=== PATIENT | female | born 1940 | race Caucasian/White ===

== ENCOUNTER → 2016-02-12 | Outpatient (CLI) | payer OTHER ==
[~2016-02-12] MED LIST: AMB10 PO; CGN5 PO; CLC100 PO; PRLSR20 PO; SIMV20TA2 PO
[2016-02-12 12:10] LABS: BASO % 0.2 %; BASO ABS # 0.01 K/uL (0-0.2); COMPLETE YES; EOS % 0.7 %; HEMATOCRIT 38.3 % (37-47); IG% 0.2 %; LYMPH ABS # 2.11 K/uL (1.2-3.4); MEAN CELL VOLUME 90.8 fL (80-100); MEAN CORPUSCULAR HGB CONC 34.2 g/dl (32-36); MEAN PLATELET VOLUME 9.1 fL (7.4-10.4); MONO % 7.8 %; NEUT % 56.1 %; PLATELET COUNT 348 K/uL (130-400); RED BLOOD COUNT 4.22 M/uL (4.2-5.4); WHITE BLOOD COUNT 6.02 K/uL (4.8-10.8)
[2016-02-12 12:15] LABS: URINE APPEARANCE CLEAR (CLEAR); URINE BILIRUBIN NEG (NEG); URINE COLOR YELLOW; URINE EPITHELIAL CELL AUTO 0-5 /lpf (0-5); URINE NITRITE NEG (NEG); URINE PH 6.5 (4.5-7.5); URINE SPECIFIC GRAVITY 1.012 (1.000-1.030); UROBILINOGEN NEG (NEG)
[2016-02-12 12:16] LABS: MANUAL MICROSCOPIC REQUIRED? NO; REVIEW REQ? NO
[2016-02-12 12:33] LABS: ALT/SGPT 22 U/L (12-78); AST/SGOT 20 U/L (15-37); BLOOD UREA NITROGEN 10 mg/dl (7-18); CALCIUM 8.9 mg/dl (8.5-10.1); CARBON DIOXIDE 25 mmol/L (21-32); CHLORIDE 108 mmol/L (98-107); CREATININE 0.58 mg/dl (0.60-1.20); GLUCOSE 108 mg/dl (70-99); POTASSIUM 3.9 mmol/L (3.5-5.1); SODIUM 143 mmol/L (136-145)
[2016-02-12 12:36] LABS: ALB/GLOB RATIO 1.1 (0.9-2); ALKALINE PHOSPHATASE 74 U/L (45-117); CHOLESTEROL 159 mg/dl (0-200); CHOLESTEROL/HDL RATIO 2.1; HDL CHOLESTEROL 76 mg/dl; LDL CHOLESTEROL CALCULATED 69 mg/dl; TRIGLYCERIDES 71 mg/dl (0-150); VERY LOW DENSITY LIPOPROT CALC 14 mg/dl
[2016-02-12 13:01] LABS: ESTIMATED AVERAGE GLUCOSE 94 mg/dl; HA1C FLAG Normal (Normal)
--- NOTE | 2016-02-19 09:02 | CODING QUERY MEDICAL NECESSITY ---
SUPPORTING DIAGNOSIS NEEDED A supporting diagnosis is required for the test/procedure performed on this patient in order for us to be reimbursed by the patient's insurance. Please provide a supporting diagnosis for the following test/procedure listed below next to the test name along with your signature. *If there is no additional diagnosis for this patient that would support the following test/procedure please document that below next to the test/procedure. Test(s)/Procedure(s) that require a supporting diagnosis: DOS 02/11 * Vitamin B12 DIAGNOSIS: Provider Signature: Date: Thank you [facility] Once completed, please kindly fax back to [phone] For questions please call [phone]
== END | disposition home or self-care (01) ==
LOC: C.LAB1850 11:09
PROVIDERS: ATTEND Internal Medicine
DX: G62.9 Polyneuropathy, unspecified (principal); R73.9 Hyperglycemia, unspecified; R35.0 Frequency of micturition; E55.9 Vitamin D deficiency, unspecified; E78.5 Hyperlipidemia, unspecified

== ENCOUNTER → 2016-08-24 | Outpatient (CLI) | payer OTHER ==
[2016-08-24 12:16] LABS: MEAN CORPUSCULAR HEMOGLOBIN 30.9 pg (25-34); MEAN CORPUSCULAR HGB CONC 33.6 g/dl (32-36); MEAN PLATELET VOLUME 9.8 fL (7.4-10.4); PLATELET COUNT 328 K/uL (130-400); RED BLOOD COUNT 4.24 M/uL (4.2-5.4); WHITE BLOOD COUNT 7.09 K/uL (4.8-10.8)
[2016-08-24 12:33] LABS: ALT/SGPT 20 U/L (12-78); AST/SGOT 18 U/L (15-37); BLOOD UREA NITROGEN 11 mg/dl (7-18); BUN/CREATININE RATIO 17.9 (10-20); CALCIUM 8.8 mg/dl (8.5-10.1); CARBON DIOXIDE 27 mmol/L (21-32); CHLORIDE 107 mmol/L (98-107); CREATININE 0.59 mg/dl (0.60-1.20); GLUCOSE 95 mg/dl (70-99); POTASSIUM 3.9 mmol/L (3.5-5.1); SODIUM 141 mmol/L (136-145)
[2016-08-24 12:44] LABS: CHOLESTEROL 152 mg/dl (0-200); CHOLESTEROL/HDL RATIO 2.1; HDL CHOLESTEROL 72 mg/dl; LDL CHOLESTEROL CALCULATED 65 mg/dl; TRIGLYCERIDES 74 mg/dl (0-150); VERY LOW DENSITY LIPOPROT CALC 15 mg/dl
== END | disposition home or self-care (01) ==
LOC: C.LAB1850 11:18
PROVIDERS: ATTEND Internal Medicine
DX: E78.5 Hyperlipidemia, unspecified (principal); G62.9 Polyneuropathy, unspecified

== ENCOUNTER → 2017-05-12 | Outpatient (CLI) | payer OTHER ==
[2017-05-12 12:34] LABS: HEMATOCRIT 36.7 % (37-47); HEMOGLOBIN 12.4 g/dL (12.0-16.0); MEAN CELL VOLUME 90.8 fL (80-100); MEAN CORPUSCULAR HEMOGLOBIN 30.7 pg (25-34); MEAN CORPUSCULAR HGB CONC 33.8 g/dl (32-36); MEAN PLATELET VOLUME 9.6 fL (7.4-10.4); PLATELET COUNT 444 K/uL (130-400); RED CELL DISTRIBUTION WIDTH CV 13.3 % (11.5-14.5); RED CELL DISTRIBUTION WIDTH SD 44.6 fL (36.4-46.3); WHITE BLOOD COUNT 6.88 K/uL (4.8-10.8)
[2017-05-12 12:50] LABS: ALBUMIN 3.7 gm/dl (3.4-5.0); ALT/SGPT 20 U/L (12-78); BLOOD UREA NITROGEN 10 mg/dl (7-18); CALCIUM 9.3 mg/dl (8.5-10.1); CARBON DIOXIDE 27 mmol/L (21-32); CHOLESTEROL 153 mg/dl (0-200); GLUCOSE 95 mg/dl (70-99); POTASSIUM 3.7 mmol/L (3.5-5.1); SODIUM 134 mmol/L (136-145)
[2017-05-12 12:53] LABS: ALKALINE PHOSPHATASE 65 U/L (45-117); AST/SGOT 18 U/L (15-37); LDL CHOLESTEROL CALCULATED 87 mg/dl; TOTAL PROTEIN 7.8 gm/dl (6.4-8.2)
== END | disposition home or self-care (01) ==
LOC: C.LAB1850 10:41
PROVIDERS: ATTEND Internal Medicine
DX: G62.9 Polyneuropathy, unspecified (principal)

== ENCOUNTER 2017-08-30 11:45 | Inpatient (IN) | payer OTHER ==
[~2017-08-30] VITALS: Ht 162.6 cm; Wt 56.0 kg
[2017-08-30] MEDS ORDERED: ONDANSETRON INJ 2 MG/ML 2 ML VIAL IV STA (12:21)
[2017-08-30] MEDS ORDERED: SODIUM CHLORIDE 0.9% 1000ML 1,000 ML IV STA (12:21)
--- NOTE | 2017-08-30 12:23 | EMERGENCY ROOM VISIT NOTE ---
History Report prepared by Claudio: Jarvis Rodríguez Under the Supervision of: Dr. Zeferino Perez M.D. First contact with patient: 12:18 Chief Complaint: FALL Stated Complaint: FALL History of Present Illness The patient is a 76 year old female who presents to the Emergency Room with complaints of constant left hip pain following a fall occurring four days ago. The patient states that she fell four days ago and has had left hip pain since. She notes that she fell on the bed and hit her head. She reports that she cannot move her left hip. Per nurse, the patient has been lying on her right and has necrotic tissue on that side. She states that the patient was not able to get up following her fall and has been on the ground for the last four days. She notes that the patient has not eaten or had anything to drink since she fell. The patient denies any neck pain and abdominal pain. She rates her pain as a 10/10. She reports that she would like her son called. Source of History: patient Onset: four days Position: other (left hip) Symptom Intensity: 10/10 Timing: constant Associated Symptoms: No neck pain, No abdominal pain Note: Per nurse, the patient has necrotic tissue on her right side. Review of Systems See HPI for pertinent positives & negatives. A total of 10 systems reviewed and were otherwise negative. Past Medical & Surgical Medical Problems: (1) Nose polyp Family History Cancer Heart disease Hypertension Social History Alcohol Use: none Marital Status: Housing Status: lives alone Occupation Status: retired Current/Historical Medications Scheduled Benztropine Mesylate (Benztropine Mesylate), 1.5 MG PO BID Cetirizine (Zyrtec), 10 MG PO HS Docusate Sodium (Colace), 100 MG PO TID Doxepin Hcl (Sleep) (Silenor), 6 MG PO HS Omeprazole (Prilosec), 20 MG PO DAILY Risperidone (Risperdal Consta), 50 MG IM Q2WKS Simvastatin (Zocor), 20 MG PO HS Temazepam (Restoril), 15 MG PO HS Allergies Coded Allergies: Morphine (Unverified Allergy, Mild, 08/30/17) Erythromycin (Unverified Allergy, Unknown, UNKNOWN, 08/30/17) Physical Exam Vital Signs Date Time Temp Pulse Resp B/P (MAP) Pulse Ox O2 Delivery O2 Flow Rate FiO2 08/30/17 16:13 105 18 154/63 98 Room Air 08/30/17 15:36 96 18 99 08/30/17 15:31 154/63 08/30/17 15:06 84 13 97 08/30/17 15:01 156/55 08/30/17 14:50 88 16 98 08/30/17 14:31 137/53 08/30/17 14:20 79 14 98 08/30/17 14:16 138/56 08/30/17 13:50 72 15 97 08/30/17 13:45 85 12 98 Room Air 08/30/17 13:32 84 18 136/67 98 Room Air 08/30/17 13:31 136/67 08/30/17 13:30 88 08/30/17 13:28 176/64 08/30/17 12:45 88 18 142/77 96 Room Air 08/30/17 11:45 36.9 88 18 150/73 96 Room Air 08/30/17 11:45 36.9 88 18 150/73 96 Room Air Physical Exam GENERAL: Awake, alert, well appearing, no acute distress HEAD: Normocephalic, atraumatic. No garcia sign. No raccoon eyes. EYES: Normal conjunctiva. PERRL. EARS: External ears normal. Right TM normal. Left TM normal. NOSE: Atraumatic OROPHARYNX: Lips, tongue, and mucosa unremarkable. No erythema or exudate. NECK: Supple. No nuchal rigidity. FROM. No tracheal deviation or JVD. No posterior midline tenderness. No step offs noted. RESPIRATORY: CTA bilaterally CARDIAC: Regular rate, normal rhythm. ABDOMEN: Inspection reveals no abnormalities. Soft, non distended. No tenderness to palpation. No hernias. BACK: No midline step offs or tenderness to palpation. Unremarkable. PELVIS: Unable to move left hip, areas of pressure source to right hip and buttock. SKIN: Normal. LYMPH: No adenopathy. MUSCULOSKELETAL: Upper and lower extremities are atraumatic. NEURO: GCS 15. Normal sensorium. No sensory or motor deficits noted. Medical Decision & Procedures ER Provider Diagnostic Interpretation: Radiology results as stated below per my review and radiologist interpretation: PELVIS 1 OR 2 VIEW ROUTINE, L FEMUR 2 VIEWS ROUTINE FINDINGS: The bones are osteopenic. No fracture or dislocation within the pelvis, hips, left femur. 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 Soft tissues are unremarkable. No radiopaque foreign bodies. IMPRESSION: No fracture or dislocation within the pelvis, hips, left femur. Electronically signed by: Marcial Donahue M.D. 08/30/2017 1:40 PM Dictated Date/Time: 08/30/2017 1:37 PM CHEST ONE VIEW PORTABLE FINDINGS: The cardiac and mediastinal contours are normal. There is no evidence of focal pulmonary consolidation. There is no evidence of failure. No pleural effusions are visualized. No pneumothorax is visualized. IMPRESSION: No active disease in the chest. Electronically signed by: Kuldip Shook M.D. 08/30/2017 1:33 PM Dictated Date/Time: 08/30/2017 1:[address] FINDINGS: No fractures. No subluxation. Prevertebral soft tissues and the C1-C2 interval are intact. No pneumothorax. Severe disc space narrowing from C3 through C7. Moderate facet degenerative changes throughout the cervical spine. Bilateral thyroid nodules with the largest on the left measuring 12 mm. There is a 6 mm nodule within the left lung apex. Additional nodular densities within the lung apices favor scarring. IMPRESSION: 1. No fractures within the cervical spine. 2. A 6 mm indeterminate nodule within the left lung apex. Please refer to the chart below for recommended follow-up. Please refer to below summary of Fleischner criteria recommendations for follow-up of incidental CT nodules (Billy Patel, Guidelines for management of small pulmonary nodules detected on CT scans: A statement from the Fleischner Society, Radiology 237: [phone].) SOLID NODULES Solitary nodule size: <6 mm * Low risk patients: no follow-up needed * high risk patients: optional CT at 12 months Solitary nodule size: 6-8 mm * Low risk patients: follow-up at 6-12 months, then consider further follow-up at 18-24 months * high risk patients: initial follow-up CT at 6-12 months and then at 18-24 months if no change Solitary nodule size: >8 mm * either low or high risk patients - consider follow-up CT at 3 months, and/or CT-PET, and/or biopsy Multiple nodules size: <6 mm * Low risk patients: no routine follow-up * high risk patients: optional CT at 12 months Multiple nodules size: 6-8 mm * Low risk patients: follow-up at 3-6 months, then consider further follow-up at 18-24 months * high risk patients: follow-up at 3-6 months, then at 18-24 months if no change Multiple nodules size: >8 mm * Low risk patients: follow-up at 3-6 months, then consider further follow-up at 18-24 months * high risk patients: follow-up at 3-6 months, then at 18-24 months if no change Note: newly detected indeterminate nodule in persons 35 years of age or older. * Low risk patients: minimal or absent history of smoking and/or other known risk factors * high risk patients: history of smoking or of other known risk factors (e.g. first degree relative with lung cancer, or exposure to asbestos, radon, uranium) * if a nodule up to 8 mm is partly solid or is ground glass further follow-up is required after 24 months to exclude possible slow growing adenocarcinoma (CAR) SUBSOLID NODULES Solitary pure ground-glass nodule * nodule size <6 mm - no CT follow-up required * nodule size >=6 mm - follow-up CT at 6-12 months, then every 2 years until 5 years Solitary part-solid nodule * nodule size <6 mm - no CT follow-up required * nodule size >=6 mm - follow-up CT at 3-6 months. If unchanged, and solid component remains <6 mm, then annual follow-up for 5 years Multiple subsolid nodules * nodule size <6 mm - follow-up CT at 3-6 months, consider further follow-up at 2 and 4 years if stable * nodule size >=6 mm - follow-up CT at 3-6 months, subsequent management based on the most suspicious nodule(s) Electronically signed by: Marcial Donahue M.D. 08/30/2017 2:24 PM Dictated Date/Time: 08/30/2017 2:[address] OF THE PELVIS AND HIPS WITHOUT CONTRAST FINDINGS: The sacroiliac joints and symphysis pubis are intact. No acute fracture is identified within the pelvis or hips. There is joint space narrowing and osteophytosis of both hips consistent with osteoarthritis. A Singh balloon is present within the bladder with a small amount of gas. Right buttock infiltration/fluid is noted. Sigmoid diverticulosis is noted without evidence for acute diverticulitis within visualized portions of the colon. Water attenuation abnormality within the right lower abdomen is partially imaged on this exam. This is likely benign but incompletely imaged. A moderate amount of stool is noted within visualized portions of the colon and rectum. IMPRESSION: 1. No acute fracture within the pelvis or hips. 2. Right buttock subcutaneous infiltration and fluid which may reflect edema or a small contusion. Electronically signed by: Neal Benson M.D. 08/30/2017 2:28 PM Dictated Date/Time: 08/30/2017 2:[address] OF THE HEAD WITHOUT CONTRAST FINDINGS: No acute intracranial hemorrhage, midline shift or mass effect is present. Ventricular system is unremarkable for age. Basilar cisterns are patent. There are no extra-axial collections. Mild white matter hypodensity suggests small vessel disease. Trace left mastoid fluid is noted. There is no calvarial fracture. IMPRESSION: No acute intracranial findings. Electronically signed by: Neal Benson M.D. 08/30/2017 2:21 PM Dictated Date/Time: 08/30/2017 2:13 PM Laboratory Results Test 08/30/17 11:50 08/30/17 12:05 08/30/17 12:21 08/30/17 12:43 Urine Color YELLOW Urine Appearance CLEAR (CLEAR) Urine pH 5.5 (4.5-7.5) Urine Specific [place] 1.027 (1.000-1.030) Urine Protein 1+ (NEG) Urine Glucose (UA) NEG (NEG) Urine Ketones 4+ (NEG) Urine Occult Blood TRACE (NEG) Urine Nitrite NEG (NEG) Urine Bilirubin NEG (NEG) Urine Urobilinogen NEG (NEG) Urine Leukocyte Esterase NEG (NEG) Urine WBC (Auto) 5-10 /hpf (0-5) Urine RBC (Auto) 5-10 /hpf (0-4) Urine Hyaline Casts (Auto) 10-30 /lpf (0-5) Urine Epithelial Cells (Auto) >30 /lpf (0-5) Urine Bacteria (Auto) NEG (NEG) Prothrombin Time 10.4 SECONDS (9.0-12.0) Prothromb Time International Ratio 1.0 (0.9-1.1) Activated Partial Thromboplast Time 26.5 SECONDS (21.0-31.0) Partial Thromboplastin Ratio 1.0 Creatine Kinase MB 10.2 ng/ml (0.5-3.6) Troponin I < 0.015 ng/ml (0-0.045) Creatine Kinase MB Ratio (0-3.0) Bedside Hemoglobin 14.3 g/dl (12.0-16.0) Bedside Hematocrit 42 % (37-47) Bedside Sodium 142 mEq/L (135-144) Bedside Potassium 4.0 mEq/L (3.3-5.0) Bedside Chloride 107 mEq/L (101-112) Bedside Total CO2 20 mEq/l (24-31) Bedside Blood Urea Nitrogen 26 mg/dl (7-18) Bedside Creatinine 0.6 mg/dl (0.6-1.3) Bedside Glucose (other) 95 mg/dl (70-99) Bedside Ionized Calcium (Jaja) 1.24 mmol/l (1.12-1.32) Labs reviewed by ED physician. Medications Administered Medications (Trade) Dose Ordered Sig/Moises Route Start Time Stop Time Status Last Admin Dose Admin Sodium Chloride 1,000 ml @ 999 mls/hr Q1H1M STAT IV 08/30/17 12:21 08/30/17 13:21 DC 08/30/17 12:33 999 MLS/HR Hydromorphone HCl (Dilaudid Inj) 0.5 mg Q20M PRN IV 08/30/17 12:30 08/30/17 16:35 DC 08/30/17 13:29 0.5 MG Ondansetron HCl (Zofran Inj) 4 mg NOW STAT IV 08/30/17 12:21 08/30/17 12:26 DC 08/30/17 13:28 4 MG Dextrose/Sodium Chloride 1,000 ml @ 150 mls/hr Q6H40M IV 08/30/17 16:00 09/29/17 15:59 08/31/17 06:35 150 MLS/HR ECG Per My Interpretation Indication: weakness Rate (beats per minute): 90 Rhythm: sinus rhythm Findings: PVC, other (No ST elevation/depression) ED Course 1218: Past medical records reviewed. The patient was evaluated in room C1. A complete history and physical examination was performed. 1233: I spoke to the patient's son. 1445: Upon reexamination the patient is stable. I discussed results and treatment plan with the patient. She verbalizes agreement and understanding. I spoke with Dr. Pulido from the [facility] Hospitalist Service. The patient will be evaluated for further management. Medical Decision Differential diagnosis: Etiologies such as fracture, dislocation, intra-abdominal, pneumothorax, intrathoracic , intracranial, neurologic, as well as other traumatic pathologies were entertained. This is a 76-year-old female who presents emergency department after landing on her hip after a fall at home. The patient was sent for x-rays of her left hip however there does not appear to be any acute fracture dislocation. Due to the patient's pain she was sent for CAT scan of the head as well as the pelvis however again there does not appear to be any acute fractures or dislocations. The patient's CK level was found to be grossly elevated. For this reason I did discuss case the hospitalist service who agreed to admit the patient. I did discuss my findings with the patient's son. He did speak with the patient on phone. Medication Reconcilliation Current Medication List: was personally reviewed by me Blood Pressure Screening Patient's blood pressure: Elevated blood pressure Elevated blood pressure will be monitored by hospitalist. Consults Time Called: 1444 Consulting Physician: Dr. Pulido - Hospitalist, [facility] Returned Call: [phone] I discussed the patient's case with Dr. Pulido, she has agreed to evaluate the patient for further management and care. Impression Primary Impression: Fall Additional Impression: Rhabdomyolysis Scribe Attestation The scribe's documentation has been prepared under my direction and personally reviewed by me in its entirety. I confirm that the note above accurately reflects all work, treatment, procedures, and medical decision making performed by me. Departure Information Dispostion Being Evaluated By Hospitalist Referrals Artie Obrien M.D. (PCP) Patient Instructions My [facility] Problem Qualifiers Primary Impression: Fall Encounter type: initial encounter Qualified Codes: W19.XXXA - Unspecified fall, initial encounter Additional Impression: Rhabdomyolysis Rhabdomyolysis type: traumatic Encounter type: initial encounter Qualified Codes: T79.6XXA - Traumatic ischemia of muscle, initial encounter
[2017-08-30] MEDS ORDERED: HYDROmorphone INJ 0.5 MG/0.5 ML SYR IV PRN (12:30)
[2017-08-30 12:34] LABS: BASO % 0.1 %; BASO ABS # 0.01 K/uL (0-0.2); EOS % 0.1 %; EOS ABS # 0.01 K/uL (0-0.5); HEMATOCRIT 41.4 % (37-47); HEMOGLOBIN 14.1 g/dL (12.0-16.0); IG# 0.04 K/uL (0.00-0.02); LYMPH % 10.4 %; LYMPH ABS # 1.49 K/uL (1.2-3.4); MEAN CORPUSCULAR HGB CONC 34.1 g/dl (32-36); MEAN PLATELET VOLUME 9.3 fL (7.4-10.4); MONO % 8.1 %; MONO ABS # 1.16 K/uL (0.11-0.59); NEUT ABS # 11.68 K/uL (1.4-6.5); PLATELET COUNT 459 K/uL (130-400); RED CELL DISTRIBUTION WIDTH CV 14.1 % (11.5-14.5); RED CELL DISTRIBUTION WIDTH SD 46.8 fL (36.4-46.3); WHITE BLOOD COUNT 14.39 K/uL (4.8-10.8)
[2017-08-30 12:43] LABS: PTT PATIENT 26.5 SECONDS (21.0-31.0)
[2017-08-30 13:09] LABS: BLOOD UREA NITROGEN 25 mg/dl (7-18); CALCIUM 9.9 mg/dl (8.5-10.1); CARBON DIOXIDE 20 mmol/L (21-32); CKMB 10.2 ng/ml (0.5-3.6); CREATININE 0.75 mg/dl (0.60-1.20); GLUCOSE 93 mg/dl (70-99); SODIUM 141 mmol/L (136-145)
--- NOTE | 2017-08-30 13:34 | DIAGNOSTIC IMAGING REPORT ---
CHEST ONE VIEW PORTABLE CLINICAL HISTORY: Pain status post trauma COMPARISON STUDY: No previous studies for comparison. FINDINGS: The cardiac and mediastinal contours are normal. There is no evidence of focal pulmonary consolidation. There is no evidence of failure. No pleural effusions are visualized.[ No pneumothorax is visualized. IMPRESSION: No active disease in the chest. Electronically signed by: Kuldip Shook M.D. 08/30/2017 1:33 PM Dictated Date/Time: 08/30/2017 1:33 PM
--- NOTE | 2017-08-30 13:41 | DIAGNOSTIC IMAGING REPORT ---
PELVIS 1 OR 2 VIEW ROUTINE, L FEMUR 2 VIEWS ROUTINE CLINICAL HISTORY: Pt c/o left hip pain COMPARISON STUDY: None. FINDINGS: The bones are osteopenic. No fracture or dislocation within the pelvis, hips, left femur. 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 Soft tissues are unremarkable. No radiopaque foreign bodies. IMPRESSION: No fracture or dislocation within the pelvis, hips, left femur. Electronically signed by: Marcial Donahue M.D. 08/30/2017 1:40 PM Dictated Date/Time: 08/30/2017 1:37 PM
[2017-08-30] MEDS ORDERED: TEMA15CA4 PO (13:59)
[2017-08-30] MEDS ORDERED: PRLSR20 PO (13:59)
[2017-08-30] MEDS ORDERED: DOCU-94 PO (13:59)
[2017-08-30] MEDS ORDERED: CETI10TA84 PO (13:59)
[2017-08-30] MEDS ORDERED: SIMV20TA2 PO (13:59)
[2017-08-30] MEDS ORDERED: [UNRECOGNIZED DRUG - CODE] IM (13:59)
[2017-08-30] MEDS ORDERED: BENZ-88 PO (13:59)
[2017-08-30] MEDS ORDERED: DOXE1TAB2 PO (13:59)
--- NOTE | 2017-08-30 14:22 | DIAGNOSTIC IMAGING REPORT ---
CT OF THE HEAD WITHOUT CONTRAST CLINICAL HISTORY: Fall. Altered mental status. COMPARISON STUDY: MRI of the brain July 17, 2005. TECHNIQUE: Helical axial images of the head were obtained without IV contrast. Automated exposure control was utilized for the study. A dose lowering technique was utilized adhering to the principles of ALARA. FINDINGS: No acute intracranial hemorrhage, midline shift or mass effect is present. Ventricular system is unremarkable for age. Basilar cisterns are patent. There are no extra-axial collections. Mild white matter hypodensity suggests small vessel disease. Trace left mastoid fluid is noted. There is no calvarial fracture. IMPRESSION: No acute intracranial findings. Electronically signed by: Neal Benson M.D. 08/30/2017 2:21 PM Dictated Date/Time: 08/30/2017 2:13 PM
--- NOTE | 2017-08-30 14:26 | DIAGNOSTIC IMAGING REPORT ---
CERVICAL SPINE CT CT DOSE: HISTORY: Pt c/o neck pain s/p fall TECHNIQUE: Multiaxial CT images of the cervical spine were performed and reformatted in the sagittal and coronal plane without the use of contrast. A dose lowering technique was utilized adhering to the principles of ALARA. COMPARISON: None. FINDINGS: No fractures. No subluxation. Prevertebral soft tissues and the C1-C2 interval are intact. No pneumothorax. Severe disc space narrowing from C3 through C7. Moderate facet degenerative changes throughout the cervical spine. Bilateral thyroid nodules with the largest on the left measuring 12 mm. There is a 6 mm nodule within the left lung apex. Additional nodular densities within the lung apices favor scarring. IMPRESSION: 1. No fractures within the cervical spine. 2. A 6 mm indeterminate nodule within the left lung apex. Please refer to the chart below for recommended follow-up. Please refer to below summary of Fleischner criteria recommendations for follow-up of incidental CT nodules (Billy Patel, Guidelines for management of small pulmonary nodules detected on CT scans: A statement from the Fleischner Society, Radiology 237: [phone].) SOLID NODULES Solitary nodule size: <6 mm * Low risk patients: no follow-up needed * high risk patients: optional CT at 12 months Solitary nodule size: 6-8 mm * Low risk patients: follow-up at 6-12 months, then consider further follow-up at 18-24 months * high risk patients: initial follow-up CT at 6-12 months and then at 18-24 months if no change Solitary nodule size: >8 mm * either low or high risk patients - consider follow-up CT at 3 months, and/or CT-PET, and/or biopsy Multiple nodules size: <6 mm * Low risk patients: no routine follow-up * high risk patients: optional CT at 12 months Multiple nodules size: 6-8 mm * Low risk patients: follow-up at 3-6 months, then consider further follow-up at 18-24 months * high risk patients: follow-up at 3-6 months, then at 18-24 months if no change Multiple nodules size: >8 mm * Low risk patients: follow-up at 3-6 months, then consider further follow-up at 18-24 months * high risk patients: follow-up at 3-6 months, then at 18-24 months if no change Note: newly detected indeterminate nodule in persons 35 years of age or older. * Low risk patients: minimal or absent history of smoking and/or other known risk factors * high risk patients: history of smoking or of other known risk factors (e.g. first degree relative with lung cancer, or exposure to asbestos, radon, uranium) * if a nodule up to 8 mm is partly solid or is ground glass further follow-up is required after 24 months to exclude possible slow growing adenocarcinoma (CAR) SUBSOLID NODULES Solitary pure ground-glass nodule * nodule size <6 mm - no CT follow-up required * nodule size >=6 mm - follow-up CT at 6-12 months, then every 2 years until 5 years Solitary part-solid nodule * nodule size <6 mm - no CT follow-up required * nodule size >=6 mm - follow-up CT at 3-6 months. If unchanged, and solid component remains <6 mm, then annual follow-up for 5 years Multiple subsolid nodules * nodule size <6 mm - follow-up CT at 3-6 months, consider further follow-up at 2 and 4 years if stable * nodule size >=6 mm - follow-up CT at 3-6 months, subsequent management based on the most suspicious nodule(s) Electronically signed by: Marcial Donahue M.D. 08/30/2017 2:24 PM Dictated Date/Time: 08/30/2017 2:16 PM
--- NOTE | 2017-08-30 14:29 | DIAGNOSTIC IMAGING REPORT ---
CT OF THE PELVIS AND HIPS WITHOUT CONTRAST CLINICAL HISTORY: Left hip pain following fall. COMPARISON STUDY: Pelvis and left femur radiographs performed earlier today. TECHNIQUE: Axial images of the pelvis and hips were obtained without IV contrast. Coronal and sagittal reformats were viewed. FINDINGS: The sacroiliac joints and symphysis pubis are intact. No acute fracture is identified within the pelvis or hips. There is joint space narrowing and osteophytosis of both hips consistent with osteoarthritis. A Singh balloon is present within the bladder with a small amount of gas. Right buttock infiltration/fluid is noted. Sigmoid diverticulosis is noted without evidence for acute diverticulitis within visualized portions of the colon. Water attenuation abnormality within the right lower abdomen is partially imaged on this exam. This is likely benign but incompletely imaged. A moderate amount of stool is noted within visualized portions of the colon and rectum. IMPRESSION: 1. No acute fracture within the pelvis or hips. 2. Right buttock subcutaneous infiltration and fluid which may reflect edema or a small contusion. Electronically signed by: Neal Benson M.D. 08/30/2017 2:28 PM Dictated Date/Time: 08/30/2017 2:21 PM
[2017-08-30] MEDS ORDERED: MAGNESIUM HYDROXIDE SUSP 30 ML UDC PO PRN (16:00)
[2017-08-30] MEDS ORDERED: ACETAMINOPHEN 325 MG TAB PO PRN (16:00)
[2017-08-30] MEDS ORDERED: ALUMINUM/MAGNESIUM/SIMETH (MAALOX MAX) 30 ML UDC PO PRN (16:00)
[2017-08-30] MEDS ORDERED: ONDANSETRON INJ 2 MG/ML 2 ML VIAL IV PRN (16:00)
[2017-08-30] MEDS ORDERED: POLYETHYLENE (MIRALAX) 17 GM PACK PO PRN (16:00)
[2017-08-30] MEDS ORDERED: TRAMADOL HCL 50 MG TAB PO PRN (16:30)
--- NOTE | 2017-08-30 16:55 | History and Physical ---
History & Physical Date & Time of Service: Aug 30, 2017 at 16:15 Chief Complaint: FALL Primary Care Physician: Artie Obrien M.D. History of Present Illness Source: patient 76y/oF with reported hx of schizophrenia, and tremors presents with L hip pain s /p fall 4 days ago. According to pt, she was trying to get on her bed but felt dizzy and fell hitting head and back on bathroom door. She did not loose consciousness. She was unable to get up and laid there for 4 days not eating/ drinking or being able to use the bathroom. Was discovered by meals on wheels. Also reports R hip pain and inability to get up or move due to pain. Denies any SOMERS/dizziness, cp, sob, abdominal pain, n/v, diarrhea/constipation, dysuria. ED hx: received 1L NS, Zofran 4mg IV x 1 and Dilaudid 0.5mg IV x 1 for pain Past Medical/Surgical History Medical Problems: (1) Nose polyp Family History Cancer Heart disease Hypertension Social History Smoking Status: Never Smoker Marital Status: Housing status: lives alone Occupational Status: retired Allergies Coded Allergies: Morphine (Unverified Allergy, Mild, 08/30/17) Erythromycin (Unverified Allergy, Unknown, UNKNOWN, 08/30/17) Home Medications Scheduled Benztropine Mesylate (Benztropine Mesylate), 1.5 MG PO BID Cetirizine (Zyrtec), 10 MG PO HS Docusate Sodium (Colace), 100 MG PO TID Doxepin Hcl (Sleep) (Silenor), 6 MG PO HS Omeprazole (Prilosec), 20 MG PO DAILY Risperidone (Risperdal Consta), 50 MG IM Q2WKS Simvastatin (Zocor), 20 MG PO HS Temazepam (Restoril), 15 MG PO HS Review of Systems Constitutional: No fever, No chills Eyes: No worsening of vision Respiratory: No shortness of breath Cardiovascular: No chest pain Abdomen: No pain, No nausea, No vomiting, No diarrhea, No constipation Musculoskeletal: + problem reported (bilateral hip pain ) Genitourinary - Female: No dysuria Physical Exam Vital Signs Date Time Temp Pulse Resp B/P (MAP) Pulse Ox O2 Delivery O2 Flow Rate FiO2 08/30/17 16:13 105 18 154/63 98 Room Air 08/30/17 15:36 96 18 99 08/30/17 15:31 154/63 08/30/17 15:06 84 13 97 08/30/17 15:01 156/55 08/30/17 14:50 88 16 98 08/30/17 14:31 137/53 08/30/17 14:20 79 14 98 08/30/17 14:16 138/56 08/30/17 13:50 72 15 97 08/30/17 13:45 85 12 98 Room Air 08/30/17 13:32 84 18 136/67 98 Room Air 08/30/17 13:31 136/67 08/30/17 13:30 88 08/30/17 13:28 176/64 08/30/17 12:45 88 18 142/77 96 Room Air 08/30/17 11:45 36.9 88 18 150/73 96 Room Air 08/30/17 11:45 36.9 88 18 150/73 96 Room Air General Appearance: + pertinent finding (rigid and tired appearing female) Head: normocephalic, atraumatic Eyes: PERRL, EOMI, + pertinent finding (squinting with R eye) ENT: normal ENT inspection, hearing grossly normal, pharynx normal, + pertinent finding (breath smells like acetone) Neck: no adenopathy Respiratory/Chest: lungs clear, normal breath sounds Cardiovascular: regular rate, rhythm, + systolic murmur (3/6 diffuse) Abdomen/GI: normal bowel sounds, non tender, soft Extremities/Musculoskelatal: no calf tenderness, no pedal edema, + pertinent finding (L hip TTP and R hip TTP with necrotic appearing erythematous skin ( epidermis is intact)) Neurologic/Psych: alert Skin: + pertinent finding (R hip region erythematous and necrotic appearing skin (epidermis intact); bilateral foot extensive fungal infection) Diagnostics Laboratory Results Results Past 24 Hours Test 08/30/17 11:50 08/30/17 12:05 08/30/17 12:21 Range/Units Urine Color YELLOW Urine Appearance CLEAR CLEAR Urine pH 5.5 4.5-7.5 Urine Specific [place] 1.027 1.000-1.030 Urine Protein 1+ NEG Urine Glucose (UA) NEG NEG Urine Ketones 4+ NEG Urine Occult Blood TRACE NEG Urine Nitrite NEG NEG Urine Bilirubin NEG NEG Urine Urobilinogen NEG NEG Urine Leukocyte Esterase NEG NEG Urine WBC (Auto) 5-10 0-5 /hpf Urine RBC (Auto) 5-10 0-4 /hpf Urine Hyaline Casts (Auto) 10-30 0-5 /lpf Urine Epithelial Cells (Auto) >30 0-5 /lpf Urine Bacteria (Auto) NEG NEG White Blood Count 14.39 4.8-10.8 K/uL Red Blood Count 4.55 4.2-5.4 M/uL Hemoglobin 14.1 12.0-16.0 g/dL Hematocrit 41.4 37-47 % Mean Corpuscular Volume 91.0 80-100 fL Mean Corpuscular Hemoglobin 31.0 25-34 pg Mean Corpuscular Hemoglobin Concent 34.1 32-36 g/dl Platelet Count 459 130-400 K/uL Mean Platelet Volume 9.3 7.4-10.4 fL Neutrophils (%) (Auto) 81.0 % Lymphocytes (%) (Auto) 10.4 % Monocytes (%) (Auto) 8.1 % Eosinophils (%) (Auto) 0.1 % Basophils (%) (Auto) 0.1 % Neutrophils # (Auto) 11.68 1.4-6.5 K/uL Lymphocytes # (Auto) 1.49 1.2-3.4 K/uL Monocytes # (Auto) 1.16 0.11-0.59 K/uL Eosinophils # (Auto) 0.01 0-0.5 K/uL Basophils # (Auto) 0.01 0-0.2 K/uL RDW Standard Deviation 46.8 36.4-46.3 fL RDW Coefficient of Variation 14.1 11.5-14.5 % Immature Granulocyte % (Auto) 0.3 % Immature Granulocyte # (Auto) 0.04 0.00-0.02 K/uL Prothrombin Time 10.4 9.0-12.0 SECONDS Prothromb Time International Ratio 1.0 0.9-1.1 Activated Partial Thromboplast Time 26.5 21.0-31.0 SECONDS Partial Thromboplastin Ratio 1.0 Sodium Level 141 136-145 mmol/L Potassium Level 4.0 3.5-5.1 mmol/L Chloride Level 106 98-107 mmol/L Carbon Dioxide Level 20 21-32 mmol/L Anion Gap 15.0 3-11 mmol/L Blood Urea Nitrogen 25 7-18 mg/dl Creatinine 0.75 0.60-1.20 mg/dl Est Creatinine Clear Calc Drug Dose 56.0 ml/min Estimated GFR () 90.4 Estimated GFR (Non- 78.0 BUN/Creatinine Ratio 33.6 10-20 Random Glucose 93 70-99 mg/dl Calcium Level 9.9 8.5-10.1 mg/dl Total Creatine Kinase 1422 26-192 U/L Creatine Kinase MB 10.2 0.5-3.6 ng/ml Creatine Kinase MB Ratio 0.7 0-3.0 Troponin I < 0.015 0-0.045 ng/ml Diagnostic Radiology CERVICAL SPINE CT CT DOSE: HISTORY: Pt c/o neck pain s/p fall TECHNIQUE: Multiaxial CT images of the cervical spine were performed and reformatted in the sagittal and coronal plane without the use of contrast. A dose lowering technique was utilized adhering to the principles of ALARA. COMPARISON: None. FINDINGS: No fractures. No subluxation. Prevertebral soft tissues and the C1-C2 interval are intact. No pneumothorax. Severe disc space narrowing from C3 through C7. Moderate facet degenerative changes throughout the cervical spine. Bilateral thyroid nodules with the largest on the left measuring 12 mm. There is a 6 mm nodule within the left lung apex. Additional nodular densities within the lung apices favor scarring. IMPRESSION: 1. No fractures within the cervical spine. 2. A 6 mm indeterminate nodule within the left lung apex. Please refer to the chart below for recommended follow-up. Please refer to below summary of Fleischner criteria recommendations for follow-up of incidental CT nodules (Billy Patel, Guidelines for management of small pulmonary nodules detected on CT scans: A statement from the Fleischner Society, Radiology 237: [phone].) SOLID NODULES Solitary nodule size: <6 mm * Low risk patients: no follow-up needed * high risk patients: optional CT at 12 months Solitary nodule size: 6-8 mm * Low risk patients: follow-up at 6-12 months, then consider further follow-up at 18-24 months * high risk patients: initial follow-up CT at 6-12 months and then at 18-24 months if no change Solitary nodule size: >8 mm * either low or high risk patients - consider follow-up CT at 3 months, and/or CT-PET, and/or biopsy Multiple nodules size: <6 mm * Low risk patients: no routine follow-up * high risk patients: optional CT at 12 months Multiple nodules size: 6-8 mm * Low risk patients: follow-up at 3-6 months, then consider further follow-up at 18-24 months * high risk patients: follow-up at 3-6 months, then at 18-24 months if no change Multiple nodules size: >8 mm * Low risk patients: follow-up at 3-6 months, then consider further follow-up at 18-24 months * high risk patients: follow-up at 3-6 months, then at 18-24 months if no change Note: newly detected indeterminate nodule in persons 35 years of age or older. * Low risk patients: minimal or absent history of smoking and/or other known risk factors * high risk patients: history of smoking or of other known risk factors (e.g. first degree relative with lung cancer, or exposure to asbestos, radon, uranium) * if a nodule up to 8 mm is partly solid or is ground glass further follow-up is required after 24 months to exclude possible slow growing adenocarcinoma (CAR) SUBSOLID NODULES Solitary pure ground-glass nodule * nodule size <6 mm - no CT follow-up required * nodule size >=6 mm - follow-up CT at 6-12 months, then every 2 years until 5 years Solitary part-solid nodule * nodule size <6 mm - no CT follow-up required * nodule size >=6 mm - follow-up CT at 3-6 months. If unchanged, and solid component remains <6 mm, then annual follow-up for 5 years Multiple subsolid nodules * nodule size <6 mm - follow-up CT at 3-6 months, consider further follow-up at 2 and 4 years if stable * nodule size >=6 mm - follow-up CT at 3-6 months, subsequent management based on the most suspicious nodule(s) [~ rep ct add3]] CT OF THE PELVIS AND HIPS WITHOUT CONTRAST CLINICAL HISTORY: Left hip pain following fall. COMPARISON STUDY: Pelvis and left femur radiographs performed earlier today. TECHNIQUE: Axial images of the pelvis and hips were obtained without IV contrast. Coronal and sagittal reformats were viewed. FINDINGS: The sacroiliac joints and symphysis pubis are intact. No acute fracture is identified within the pelvis or hips. There is joint space narrowing and osteophytosis of both hips consistent with osteoarthritis. A Singh balloon is present within the bladder with a small amount of gas. Right buttock infiltration/fluid is noted. Sigmoid diverticulosis is noted without evidence for acute diverticulitis within visualized portions of the colon. Water attenuation abnormality within the right lower abdomen is partially imaged on this exam. This is likely benign but incompletely imaged. A moderate amount of stool is noted within visualized portions of the colon and rectum. IMPRESSION: 1. No acute fracture within the pelvis or hips. 2. Right buttock subcutaneous infiltration and fluid which may reflect edema or a small contusion. CHEST ONE VIEW PORTABLE CLINICAL HISTORY: Pain status post trauma COMPARISON STUDY: No previous studies for comparison. FINDINGS: The cardiac and mediastinal contours are normal. There is no evidence of focal pulmonary consolidation. There is no evidence of failure. No pleural effusions are visualized.[ No pneumothorax is visualized. IMPRESSION: No active disease in the chest. PELVIS 1 OR 2 VIEW ROUTINE, L FEMUR 2 VIEWS ROUTINE CLINICAL HISTORY: Pt c/o left hip pain COMPARISON STUDY: None. FINDINGS: The bones are osteopenic. No fracture or dislocation within the pelvis, hips, left femur. 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 Soft tissues are unremarkable. No radiopaque foreign bodies. IMPRESSION: No fracture or dislocation within the pelvis, hips, left femur. CT OF THE HEAD WITHOUT CONTRAST CLINICAL HISTORY: Fall. Altered mental status. COMPARISON STUDY: MRI of the brain July 17, 2005. TECHNIQUE: Helical axial images of the head were obtained without IV contrast. Automated exposure control was utilized for the study. A dose lowering technique was utilized adhering to the principles of ALARA. FINDINGS: No acute intracranial hemorrhage, midline shift or mass effect is present. Ventricular system is unremarkable for age. Basilar cisterns are patent. There are no extra-axial collections. Mild white matter hypodensity suggests small vessel disease. Trace left mastoid fluid is noted. There is no calvarial fracture. IMPRESSION: No acute intracranial findings. PELVIS 1 OR 2 VIEW ROUTINE, L FEMUR 2 VIEWS ROUTINE CLINICAL HISTORY: Pt c/o left hip pain COMPARISON STUDY: None. FINDINGS: The bones are osteopenic. No fracture or dislocation within the pelvis, hips, left femur. 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 Soft tissues are unremarkable. No radiopaque foreign bodies. IMPRESSION: No fracture or dislocation within the pelvis, hips, left femur. CXR normal EKG Rate 90 NSR Impression Assessment and Plan 6y/oF with reported hx of schizophrenia, and tremors presents with L hip pain s/ p fall 4 days ago with subsequent immobility. Admitted for rhabdomyolysis based on elevated CK of 1422 with normal Cr of 0.75 and fasting ketoacidosis given patient did not have anything to eat or drink until discovered today. Hip pain s/p Fall with head trauma likely from contusion vs. hematoma with no fractures per imaging - CT head - no acute abnormality - Pelvis XR - mild osteoarthritis - CT pelvis/hip - No fracture; R buttocks subQ infiltration and fluid concerning for edema/small contusion - C-spine CT - no fracture - Femur XR - neg - Pain: tramadol 25mg Q4H PRN and ibuprofen 600mg QID - wound care consulted - PT/OT and SW consult - pt lives alone Rhabdomyolysis - NS with D5 at 150mls/hr - CK elevated to 1422 - Cr of 0.75 with mildly elevated BUN of 25 - Repeat CK and BMP/electrolytes tomorrow AM Fasting Ketoacidosis - UA positive for 4+ ketones - Bicarb low at 20 with AG of 15 - Started on IVF NS with D% at 150mls/hr - Repeat BMP tomorrow AM Elevated WBC and Plts - Plt elevated to 459 (previously also elevated to 444 on 05/12/17) - WBC 14.4 - CXR neg - UA likely contaminated - Monitor CBC Incidental finding of lung nodule - 6mm nodule L lung apex: outpt follow up in 6-12 months per guidelines Fungal foot infection - Noted on exam - Consider oral antifungal treatment prior to discharge once improving clinically Schizophrenia - Continue risperidone Tremors - Continue benztropine HLD - Continue Simvastatin Insomnia - Continue Temazepam and Doxepin GERD/chronic constipation - Continue Prilosec and Colace Allergic rhinitis - continue zyrtec DVT prop: Heparin SQ Code: Discuss when pt feeling better Dispo: SW consult Resuscitation Status VTE Prophylaxis Will order VTE Prophylaxis: Yes Reviewed: Pt Seen/Exam by Me History Pt fell on and was found today. No PO intake or meds since that time. Denies chest pain or SOB. Is hungry. Agree with HPI/ROS as noted by resident. General Appearance: mild distress (shaking), thin Eye Exam: bilateral eye normal inspection, bilateral eye other (nml sclera) Respiratory: normal breath sounds, no respiratory distress Cardiovascular: normal peripheral pulses, regular rate, rhythm Gastrointestinal: non tender, soft Extremities: non-tender, no pedal edema Neurologic/Psychiatric: alert, other (answers questions mostly with yes/no) Skin Characteristics: warm/dry, other (b/l feet with skin and nail discoloration c/w fungal infection) Assessment/Plan Agree with plan as outlined above Rhabdo: cr WNL Monitor CK Trop neg IVF Liquids to start, monitor for refeeding issues WCC PT/OT Neg for fractures May need placement
[2017-08-30 17:00] VITALS: BP 147/61; PULSE 101; TEMP 36.7; O2SAT 95; BMI 21.2
[2017-08-30] MEDS: IBUPROFEN 600 MG TAB PO SCH ×2 (17:00→21:37)
[2017-08-30] MEDS: D5W AND NSS 1,000 ML IV SCH (17:34)
[2017-08-30 18:04] LABS: ISTAT CREATININE 0.6 mg/dl (0.6-1.3); ISTAT IONIZED CALCIUM 1.24 mmol/l (1.12-1.32)
[2017-08-30] MEDS: BENZTROPINE MESYLATE 1 MG TAB PO SCH (21:35)
[2017-08-30] MEDS: DOCUSATE SODIUM 100 MG CAP PO SCH (21:36)
[2017-08-30] MEDS: SIMVASTATIN 20 MG TAB PO SCH (21:37)
[2017-08-30] MEDS: CETIRIZINE HCL 10 MG TAB PO SCH (21:37)
[2017-08-30] MEDS: TEMAZEPAM 15 MG CAP PO SCH (21:44)
[2017-08-30] MEDS: HEPARIN SOD 5000 UNIT/0.5 ML CARP SQ SCH (21:44)
[2017-08-30 23:03] VITALS: BP 120/61; PULSE 83; TEMP 36.9; O2SAT 97
[2017-08-31] MEDS: D5W AND NSS 1,000 ML IV SCH ×3 (00:13→12:55)
[2017-08-31 07:42] VITALS: BP 138/62; PULSE 80; TEMP 37.1; O2SAT 99
[2017-08-31] MEDS: BENZTROPINE MESYLATE 1 MG TAB PO SCH ×2 (08:00→20:35)
[2017-08-31] MEDS: DOCUSATE SODIUM 100 MG CAP PO SCH ×3 (08:01→20:33)
[2017-08-31] MEDS: IBUPROFEN 600 MG TAB PO SCH ×4 (08:01→20:33)
[2017-08-31] MEDS: HEPARIN SOD 5000 UNIT/0.5 ML CARP SQ SCH ×2 (08:01→20:34)
[2017-08-31] MEDS: PANTOprazole SOD 40 MG TAB PO SCH (08:01)
[2017-08-31 08:10] VITALS: O2SAT 99
[2017-08-31 08:20] LABS: BASO % 0.2 %; BASO ABS # 0.02 K/uL (0-0.2); EOS % 0.9 %; EOS ABS # 0.08 K/uL (0-0.5); HEMATOCRIT 33.8 % (37-47); HEMOGLOBIN 11.4 g/dL (12.0-16.0); IG# 0.03 K/uL (0.00-0.02); LYMPH % 16.2 %; MEAN CELL VOLUME 90.6 fL (80-100); MEAN CORPUSCULAR HEMOGLOBIN 30.6 pg (25-34); MEAN CORPUSCULAR HGB CONC 33.7 g/dl (32-36); MEAN PLATELET VOLUME 9.1 fL (7.4-10.4); MONO % 9.3 %; MONO ABS # 0.86 K/uL (0.11-0.59); NEUT % 73.1 %; NEUT ABS # 6.75 K/uL (1.4-6.5); PLATELET COUNT 328 K/uL (130-400); RED CELL DISTRIBUTION WIDTH SD 46.9 fL (36.4-46.3); WHITE BLOOD COUNT 9.24 K/uL (4.8-10.8)
--- NOTE | 2017-08-31 08:29 | Family Medicine Progress Note ---
Progress Note Date of Service Aug 31, 2017. Subjective Pt evaluation today including: conversation w/ patient, physical exam, chart review, lab review Pain: 4/10 PO Intake: tolerating Voiding: no voiding problems Patient was finishing breakfast when I examined her this morning. She reports sleeping well, tolerating her diet, and voiding/stooling appropriately. Pt had no complaints. Constitutional: No fever, No chills, No sweats ENT: No hearing loss Respiratory: No cough, No sputum, No wheezing, No shortness of breath Cardiovascular: No chest pain, No edema Abdomen: No pain, No nausea, No vomiting, No diarrhea, No constipation Musculoskeletal: No joint pain Female : No dysuria Heme: No abnormal bleeding/bruising, No clotting problems Endo: No fatigue Skin: No rash, No itch, No new/changing skin lesions All Other Systems: Reviewed and Negative Medications Current Inpatient Medications Medications (Trade) Dose Ordered Sig/Moises Route Start Time Stop Time Status Last Admin Dose Admin Acetaminophen (Tylenol Tab) 650 mg Q4H PRN PO 08/30/17 16:00 09/29/17 15:59 Al Hydrox/Mg Hydrox/Simethicone (Maalox Max Susp) 15 ml Q4H PRN PO 08/30/17 16:00 09/29/17 15:59 Magnesium Hydroxide (Milk Of Magnesia Susp) 30 ml Q6H PRN PO 08/30/17 16:00 09/29/17 15:59 Polyethylene (Miralax Powder Packet) 17 gm DAILY PRN PO 08/30/17 16:00 09/29/17 15:59 Ondansetron HCl (Zofran Inj) 4 mg Q6H PRN IV 08/30/17 16:00 09/29/17 15:59 Heparin Sodium (Porcine) (Heparin Sq 5000 Unit/0.5ml) 5,000 unit Q12H SQ 08/30/17 21:00 09/29/17 15:59 Dextrose/Sodium Chloride 1,000 ml @ 150 mls/hr Q6H40M IV 08/30/17 16:00 09/29/17 15:59 08/31/17 06:35 150 MLS/HR Benztropine Mesylate (Cogentin Tab) 1.5 mg BID PO 08/30/17 20:00 09/29/17 20:59 08/31/17 08:00 1.5 MG Cetirizine HCl (zyrTEC TAB) 10 mg HS PO 08/30/17 21:00 09/29/17 20:59 08/30/17 21:37 10 MG Docusate Sodium (coLACE CAP) 100 mg TID PO 08/30/17 20:00 09/29/17 20:59 08/31/17 08:01 100 MG Simvastatin (Zocor Tab) 20 mg HS PO 08/30/17 21:00 09/29/17 20:59 08/30/17 21:37 20 MG Temazepam (Restoril Cap) 15 mg HS PO 08/30/17 21:00 09/29/17 20:59 08/30/17 21:44 15 MG Miscellaneous Information (Order Awaiting Action) 1 ea QS N/A 08/31/17 00:00 09/30/17 00:00 Pantoprazole Sodium (Protonix Tab) 40 mg QAM PO 08/31/17 08:00 09/30/17 08:59 08/31/17 08:01 40 MG Miscellaneous Information (Order Awaiting Action) 1 ea QS N/A 08/30/17 18:00 09/29/17 17:59 08/30/17 17:34 1 EA Ibuprofen (Motrin Tab) 600 mg QID PO 08/30/17 17:00 09/29/17 16:59 08/31/17 08:01 600 MG Tramadol HCl (Ultram Tab) 25 mg Q4H PRN PO 08/30/17 16:30 09/29/17 16:29 08/30/17 17:35 25 MG Objective Vital Signs Date Time Temp Pulse Resp B/P (MAP) Pulse Ox O2 Delivery O2 Flow Rate FiO2 08/31/17 07:42 37.1 80 18 138/62 (87) 99 Room Air 08/31/17 00:00 Room Air 08/30/17 23:03 36.9 83 18 120/61 (80) 97 Room Air 08/30/17 17:00 Room Air 08/30/17 17:00 36.7 101 15 147/61 (89) 95 Room Air 08/30/17 16:50 36.9 105 18 154/63 98 08/30/17 16:13 105 18 154/63 98 Room Air 08/30/17 15:36 96 18 99 08/30/17 15:31 154/63 08/30/17 15:06 84 13 97 08/30/17 15:01 156/55 08/30/17 14:50 88 16 98 08/30/17 14:31 137/53 08/30/17 14:20 79 14 98 08/30/17 14:16 138/56 08/30/17 13:50 72 15 97 08/30/17 13:45 85 12 98 Room Air 08/30/17 13:32 84 18 136/67 98 Room Air 08/30/17 13:31 136/67 08/30/17 13:30 88 08/30/17 13:28 176/64 08/30/17 12:45 88 18 142/77 96 Room Air 08/30/17 11:45 36.9 88 18 150/73 96 Room Air 08/30/17 11:45 36.9 88 18 150/73 96 Room Air Physical Exam Notes: General Appearance: + pertinent finding (rigid and tired appearing female, Tearful during the exam) Head: normocephalic, atraumatic Eyes: PERRL, EOMI, + pertinent finding (squinting with R eye) ENT: normal ENT inspection, hearing grossly normal, pharynx normal, Neck: no adenopathy Respiratory/Chest: lungs clear, normal breath sounds Cardiovascular: regular rate, rhythm, + systolic murmur (3/6 diffuse) Abdomen/GI: normal bowel sounds, non tender, soft Extremities/Musculoskelatal: Tremor, no calf tenderness, no pedal edema, + pertinent finding (L hip TTP and R hip TTP with necrotic appearing erythematous skin (epidermis is intact)) Neurologic/Psych: alert, Skin: + pertinent finding (R hip region erythematous and necrotic appearing skin (epidermis intact); bilateral foot extensive fungal infection) Laboratory Results Last Resulted 08/31/17 07:41 Red Blood Count 3.73, Mean Corpuscular Volume 90.6, Mean Corpuscular Hemoglobin 30.6, Mean Corpuscular Hemoglobin Concent 33.7, Mean Platelet Volume 9.1, Neutrophils (%) (Auto) 73.1, Lymphocytes (%) (Auto) 16.2, Monocytes (%) (Auto) 9.3, Eosinophils (%) (Auto) 0.9, Basophils (%) (Auto) 0.2, Neutrophils # (Auto) 6.75, Lymphocytes # (Auto) 1.50, Monocytes # (Auto) 0.86, Eosinophils # (Auto) 0.08, Basophils # (Auto) 0.02 Past 24 Hours Test 08/30/17 12:05 08/30/17 12:21 08/31/17 07:41 Range/Units Creatine Kinase MB 10.2 H 0.5-3.6 ng/ml Creatine Kinase MB Ratio 0.7 0-3.0 Prothromb Time International Ratio 1.0 0.9-1.1 Prothrombin Time 10.4 9.0-12.0 SECONDS Total Creatine Kinase 1422 H 26-192 U/L Troponin I < 0.015 0-0.045 ng/ml Assessment and Plan 76y/oF with reported hx of schizophrenia, and tremors presents with L hip pain s /p fall 4 days ago with subsequent immobility. Admitted for rhabdomyolysis based on elevated CK of 1422 with normal Cr of 0.75 and fasting ketoacidosis given patient did not have anything to eat or drink until discovered today. Hip pain s/p Fall with head trauma likely from contusion vs. hematoma with no fractures per imaging - CT head - no acute abnormality - Pelvis XR - mild osteoarthritis - CT pelvis/hip - No fracture; R buttocks subQ infiltration and fluid concerning for edema/small contusion - C-spine CT - no fracture - Femur XR - neg - Pain: tramadol 25mg Q4H PRN and ibuprofen 600mg QID - wound care consulted - PT/OT and SW consult - pt lives alone Electrolyte Abnormalities - K+ was 3.0 gave 60 meq of K+ IV - PO4 was 1.9 gave 21 mmol of KPO4 - F/U albumin - Transitioned of D5W to LR to ppx against refeeding syndrome -Added Thiamine 100 mg BID per nutrition Elevation Of CK - Likely 2/2 to poor nutrition/being down for 4 days and skin infection - CK trending down 1422 -> 934 - Cr of 0.75 with mildly - BUN of 25 trending down 19 - NS with LR at 150mls/hr would continue as tolerated, dc tomorrow pending labs - Repeat CK and BMP/electrolytes tomorrow AM Fasting Ketoacidosis - UA positive for 4+ ketones - Bicarb normalizing 20 ->23 with AG of 7.0 - Started on IVF NS with D% at 150mls/hr - Repeat BMP tomorrow AM Elevated WBC and Plts - likely 2/2 to dehydration as levels have normalized - Plt elevated to 459 -> 328 - WBC 14.4 -> 9.24 - CXR neg - UA likely contaminated - Monitor CBC - F/U wound culture New onset wet cough - F/U Sputum Culture - Started on empire cefazolin 1g q8h Incidental finding of lung nodule - 6mm nodule L lung apex: outpt follow up in 6-12 months per guidelines Fungal foot infection - Noted on exam - Consider oral antifungal treatment prior to discharge once improving clinically - F/U toe culture Schizophrenia - Continue risperidone - Concerned rigidity and tremor are 2/2 - Consulted psych for medication management Tremors - Continue benztropine HLD - Continue Simvastatin Insomnia - Continue Temazepam and Doxepin GERD/chronic constipation - Continue Prilosec and Colace Allergic rhinitis - continue zyrtec DVT prop: Heparin SQ Code: Discuss when pt feeling better Dispo: SW consult Resident Physician Supervision Note: I interviewed and examined the patient. Discussed with Dr. Verdugo and agree with findings and plan as documented in the note. Any exceptions or clarifications are listed here: None Documented By: Luciano Torres left hip hurts weak vitals noted nad breathing unlabored no pallor or icterus. L hip no lesions, painful ROM but more painful lateral and buttock than bone/joint/groin. R hip superficial ulceration w dull surrounding erythema fall/weakness - concern on relationship to schizophrenia meds? ask psych for assistance. could simply be deconditioning due to age/frailty, but with stiffness/etc seems that psych meds could play a role. PT/OT, supportive care L hip pain - no fx/ appearing muscular. PT, OT, consider OMT R hip ulceration - local care, w mild surrounding cellulitis, abx appear warranted. otherwise as above Resident Tracking Resident Involvement: Resident Care Provided Care Provided: Adult Hospital Medicine
[2017-08-31 08:52] LABS: CALCIUM 8.1 mg/dl (8.5-10.1); CREATININE 0.61 mg/dl (0.60-1.20); PHOSPHORUS 1.9 mg/dl (2.5-4.9)
[2017-08-31] MEDS ORDERED: POTASSIUM PHOS 3 MMOL/1 ML INFUSION IV STA (09:36)
[2017-08-31] MEDS ORDERED: POTASSIUM PHOSPHATE INJ 21 MMOL in SODIUM CHLORIDE 0.9% 500ML 500 ML IV ONE (10:15)
[2017-08-31] MEDS: POTASSIUM CHLR 10 MEQ / WTR 100 ML IV SCH ×6 (11:12→18:29)
[2017-08-31] MEDS ORDERED: NURSING VERBAL MED ORDER ONE (11:15)
[2017-08-31] MEDS: CEFAZOLIN IV 1,000 MG in SYRINGE 0 ML IV SCH ×2 (12:53→20:31)
[2017-08-31 13:15] VITALS: Ht 162.6 cm; Wt 56.0 kg
[2017-08-31] MEDS ORDERED: VALB40CA (13:46)
--- NOTE | 2017-08-31 14:21 | Psychiatric Consultation ---
Consultation Date of Consultation Aug 31, 2017. Identifying Data 76 yo woman who lives alone in the [facility], admitted after falling and being on the floor for 4 days. We are consulted to evaluate patient 's meds and presentation with signs of Tardive Dyskinesia. Chief Complaint None stated. History of Present Illness The patient is a 76-year-old woman who apparently fell in her apartment where she lives alone. 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 She is admitted to the medical floor with rhabdo. We are invited to see the patient to evaluate medication management given that she has signs of tardive dyskinesia. At the time of my visit, the patient is very somnolent and does not answer questions directly. Her son is at the bedside and is able to provide some history. He indicates that she has been diagnosed with schizophrenia since the age of 20. When her illness was active, she would hear people moving furniture in her home , that were not there. She has long been maintained on Risperdal Consta that she gets every 2 weeks with her next shot due on Wednesday. She has not been symptomatic in a very long time. She has 2 sons, each of whom, once a month to visit and assist her with shopping and any other needs, which means they see her every 2 weeks. In recent visits, she has been noted to be in a good mood. He indicates that she has put on about 28 pounds in the last year, after having felt medically ill the year before during which time she lost weight. He has seen no indication that her schizophrenia is unstable, no evidence of thought disorder, no mood problems. He indicates that she has never been hospitalized for mental health reasons and has never made a suicide attempt. She has been on a medication, Ingrezza, for her tar dive dyskinesia symptoms since August 10 although to date no improvement. Predominantly the son reports that she has symptoms in her arms and legs, catherine to tremors that make it difficult for her at times to function. She has seen Dr. Joshi at [facility] for some time. Overall, the son believes that she is well cared for psychiatrically, and sees no need for medication adjustments at this time. Past Psychiatric History Current OP Treatment: psychiatrist (Dr. Joshi at [facility]) Prior Psych Hospitalizations: none Access to a Gun: No Suicide Attempts: No Past Medical/Surgical History (1) Rhabdomyolysis (2) Fall Allergies Allergies: Coded Allergies: Morphine (Unverified Allergy, Mild, 08/30/17) Erythromycin (Unverified Allergy, Unknown, UNKNOWN, 08/30/17) Home Medications Scheduled Benztropine Mesylate (Benztropine Mesylate), 1.5 MG PO BID Cetirizine (Zyrtec), 10 MG PO HS Docusate Sodium (Colace), 100 MG PO TID Doxepin Hcl (Sleep) (Silenor), 6 MG PO HS Omeprazole (Prilosec), 20 MG PO DAILY Risperidone (Risperdal Consta), 50 MG IM Q2WKS Simvastatin (Zocor), 20 MG PO HS Temazepam (Restoril), 15 MG PO HS Valbenazine Tosylate (Ingrezza), 40 MG DAILY Family History Cancer Heart disease Hypertension Noncontributory Alcohol Use Alcohol Use In Past 12 Months: No Smoking Use Smoking Status: Never Smoker Substance History None Personal History Education: graduated college ([employer]) 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 Relationship History: Children: 2 sons Review of Systems Too somnolent to participate Examination Vital Signs Vital Signs Past 12 Hours Date Time Temp Pulse Resp B/P (MAP) Pulse Ox O2 Delivery O2 Flow Rate FiO2 08/31/17 08:10 99 Room Air 08/31/17 07:42 37.1 80 18 138/62 (87) 99 Room Air Laboratory Results Last 24 Hours Test 08/31/17 07:41 White Blood Count 9.24 K/uL Red Blood Count 3.73 M/uL Hemoglobin 11.4 g/dL Hematocrit 33.8 % Mean Corpuscular Volume 90.6 fL Mean Corpuscular Hemoglobin 30.6 pg Mean Corpuscular Hemoglobin Concent 33.7 g/dl Platelet Count 328 K/uL Mean Platelet Volume 9.1 fL Neutrophils (%) (Auto) 73.1 % Lymphocytes (%) (Auto) 16.2 % Monocytes (%) (Auto) 9.3 % Eosinophils (%) (Auto) 0.9 % Basophils (%) (Auto) 0.2 % Neutrophils # (Auto) 6.75 K/uL Lymphocytes # (Auto) 1.50 K/uL Monocytes # (Auto) 0.86 K/uL Eosinophils # (Auto) 0.08 K/uL Basophils # (Auto) 0.02 K/uL RDW Standard Deviation 46.9 fL RDW Coefficient of Variation 14.0 % Immature Granulocyte % (Auto) 0.3 % Immature Granulocyte # (Auto) 0.03 K/uL Sodium Level 140 mmol/L Potassium Level 3.0 mmol/L Chloride Level 110 mmol/L Carbon Dioxide Level 23 mmol/L Anion Gap 7.0 mmol/L Blood Urea Nitrogen 19 mg/dl Creatinine 0.61 mg/dl Est Creatinine Clear Calc Drug Dose 68.9 ml/min Estimated GFR () 102.8 Estimated GFR (Non- 88.7 BUN/Creatinine Ratio 31.3 Random Glucose 163 mg/dl Calcium Level 8.1 mg/dl Phosphorus Level 1.9 mg/dl Magnesium Level 1.9 mg/dl Total Creatine Kinase 934 U/L Albumin 2.6 gm/dl Mental Examination During interview pt is: other (Somnolent) Appearance: appropriately groomed Eye contact is: other (Keeps eyes closed for most of visit) Motor behavior is: no abnormal motor movements Impression / Recommendations Impression 76-year-old woman admitted medically after a fall resulting in a rhabdomyolysis. We are consulted to evaluate medications and tardive dyskinesia. This is a very fortunate woman who has 2 sons who are actively involved in her care and know all of the details of her treatment. Her schizophrenia has long been stable on long acting injectable Risperdal Consta which she is due for next Wednesday. They have the prescription in her apartment in her refrigerator and can bring it and if she remains in the hospital at that time. She was recently started on Ingrezza for her tardive dyskinesia on August 10 and I am concerned that problems with balance can be a side effect of Ingrezza , and would recommend stopping this for the time being to see if her balance returns. Somnolence can also be a side effect of Ingrezza, although its difficult for me to evaluate this currently, as there may be some somnolence following her ordeal with having been on the floor for 4 days. Her schizophrenia has been stable for many years and so I see no reason to change her Risperdal. I was unable to obtain an AIMS scale (for involuntary movements ) due to patient's inability to participate. Inventory Assets Strengths: Good support from her sons Risk Factors Assessment : Yes /single/: Yes Higher / Fall in social status: No Access to guns: No Health problems: Yes Mental Health Diagnoses: Yes Substance use disorders: No Previous attempt: No Previous psychiatric stay: No Smoker: No Protective Factors Assessment : No Responsible for young children: No Employed: No Stable relationships: Yes Supportive family: Yes Recommendations (1) Schizophrenia 08/31 - Due for Risperdal Consta next . Son's can bring in for administration if still inpatient - No active symptoms of her illness in years per son's (2) Tardive dyskinesia 08/31 - Started on Ingrezza for TD August 10 - Can have side effects of loss of balance and so recommend stopping this to see if imbalance/falls improve. Dr. Patricia Bass has personally been involved in the review of this case and development of these recommendations.
[2017-08-31 14:46] VITALS: BP 138/62; PULSE 73; TEMP 37.7; O2SAT 98
[2017-08-31] MEDS ORDERED: THIAMINE HCL IV SCH (15:45)
[2017-08-31] MEDS ORDERED: LACTATED RINGER S IV SCH (15:45)
[2017-08-31] MEDS: [UNRECOGNIZED DRUG - OTHER] IV SCH (16:57)
[2017-08-31] MEDS: THIAMINE HCL 100 MG IV SCH (16:57)
[2017-08-31 20:31] VITALS: BP 146/70; PULSE 87; TEMP 37.1; O2SAT 97
[2017-08-31] MEDS: SIMVASTATIN 20 MG TAB PO SCH (22:20)
[2017-08-31] MEDS: CETIRIZINE HCL 10 MG TAB PO SCH (22:20)
[2017-08-31] MEDS: TEMAZEPAM 15 MG CAP PO SCH (22:20)
[2017-08-31 22:54] VITALS: BP 135/71; PULSE 82; TEMP 37.2; O2SAT 97
[2017-09-01] MEDS: [UNRECOGNIZED DRUG - OTHER] IV SCH ×4 (00:04→22:35)
[2017-09-01] MEDS: THIAMINE HCL 100 MG IV SCH ×4 (00:04→22:35)
[2017-09-01] MEDS: CEFAZOLIN IV 1,000 MG in SYRINGE 0 ML IV SCH ×2 (04:49→12:14)
[2017-09-01 06:59] VITALS: BP 144/72; PULSE 69; TEMP 36.1; O2SAT 96
--- NOTE | 2017-09-01 07:19 | Family Medicine Progress Note ---
Progress Note Date of Service Sep 01, 2017. Subjective Pt evaluation today including: conversation w/ patient, physical exam, chart review, lab review Pain: 5/10 PO Intake: Tolerating Patient reports feeling significantly better today, her affect has improved as well. She reports eating voiding and stooling appropriately. She reports she finally got a good night of sleep. Subjective pain in her L hip has resolved. However she still endorses significant pain in her back/ and right hip. Additional Comments: Constitutional: No fever, No chills, No sweats ENT: No hearing loss Respiratory: No cough, No sputum, No wheezing, No shortness of breath Cardiovascular: No chest pain, No edema Abdomen: No pain, No nausea, No vomiting, No diarrhea, No constipation Musculoskeletal: No joint pain Female : No dysuria Heme: No abnormal bleeding/bruising, No clotting problems Endo: No fatigue Skin: Rash, Pain, No itch, All Other Systems: Reviewed and Negative Medications Current Inpatient Medications Medications (Trade) Dose Ordered Sig/Moises Route Start Time Stop Time Status Last Admin Dose Admin Acetaminophen (Tylenol Tab) 650 mg Q4H PRN PO 08/30/17 16:00 09/29/17 15:59 Al Hydrox/Mg Hydrox/Simethicone (Maalox Max Susp) 15 ml Q4H PRN PO 08/30/17 16:00 09/29/17 15:59 Magnesium Hydroxide (Milk Of Magnesia Susp) 30 ml Q6H PRN PO 08/30/17 16:00 09/29/17 15:59 Polyethylene (Miralax Powder Packet) 17 gm DAILY PRN PO 08/30/17 16:00 09/29/17 15:59 Ondansetron HCl (Zofran Inj) 4 mg Q6H PRN IV 08/30/17 16:00 09/29/17 15:59 Heparin Sodium (Porcine) (Heparin Sq 5000 Unit/0.5ml) 5,000 unit Q12H SQ 08/30/17 21:00 09/29/17 15:59 Benztropine Mesylate (Cogentin Tab) 1.5 mg BID PO 08/30/17 20:00 09/29/17 20:59 08/31/17 20:35 1.5 MG Cetirizine HCl (zyrTEC TAB) 10 mg HS PO 08/30/17 21:00 09/29/17 20:59 08/31/17 22:20 10 MG Docusate Sodium (coLACE CAP) 100 mg TID PO 08/30/17 20:00 09/29/17 20:59 08/31/17 20:33 100 MG Simvastatin (Zocor Tab) 20 mg HS PO 08/30/17 21:00 09/29/17 20:59 08/31/17 22:20 20 MG Temazepam (Restoril Cap) 15 mg HS PO 08/30/17 21:00 09/29/17 20:59 08/31/17 22:20 15 MG Miscellaneous Information (Order Awaiting Action) 1 ea QS N/A 08/31/17 00:00 09/30/17 00:00 Pantoprazole Sodium (Protonix Tab) 40 mg QAM PO 08/31/17 08:00 09/30/17 08:59 08/31/17 08:01 40 MG Miscellaneous Information (Order Awaiting Action) 1 ea QS N/A 08/30/17 18:00 09/29/17 17:59 08/30/17 17:34 1 EA Ibuprofen (Motrin Tab) 600 mg QID PO 08/30/17 17:00 09/29/17 16:59 08/31/17 20:33 600 MG Tramadol HCl (Ultram Tab) 25 mg Q4H PRN PO 08/30/17 16:30 09/29/17 16:29 08/30/17 17:35 25 MG Cefazolin Sodium 1000 mg/Syringe 7.5 ml @ 2.5 mls/min Q8H IV 08/31/17 12:00 09/07/17 11:59 09/01/17 04:49 2.5 MLS/MIN Thiamine HCl 100 mg/Lactated Ringer's 1,001 ml @ 150 mls/hr BY DURATION IV 08/31/17 16:30 09/30/17 16:29 09/01/17 07:12 150 MLS/HR Lactated Ringer's 1,000 ml @ 150 mls/hr BY DURATION IV 08/31/17 16:30 09/30/17 16:29 09/01/17 00:04 150 MLS/HR Objective Vital Signs Date Time Temp Pulse Resp B/P (MAP) Pulse Ox O2 Delivery O2 Flow Rate FiO2 09/01/17 06:59 36.1 69 16 144/72 (96) 96 Room Air 08/31/17 22:54 37.2 82 16 135/71 (92) 97 Room Air 08/31/17 20:31 37.1 87 16 146/70 (95) 97 Room Air 08/31/17 20:30 Room Air 08/31/17 14:46 37.7 73 18 138/62 (87) 98 Room Air 08/31/17 08:10 99 Room Air 08/31/17 07:42 37.1 80 18 138/62 (87) 99 Room Air Physical Exam General Appearance: WD/WN, no apparent distress, + thin Eyes: normal inspection, EOMI, sclerae normal ENT: hearing grossly normal Neck: supple, no adenopathy, thyroid normal, trachea midline Respiratory/Chest: chest non-tender, lungs clear, normal breath sounds, no respiratory distress, no accessory muscle use Cardiovascular: regular rate, rhythm, no edema, no JVD Abdomen: normal bowel sounds, non tender, soft, no organomegaly, no pulsatile mass Extremities: non-tender, normal inspection, no pedal edema, no calf tenderness , normal capillary refill, pelvis stable Neurologic/Psychiatric: alert, normal mood/affect, oriented x 3 Skin: normal color, warm/dry, + rash (Pt has a rash on her back and right hip. Cultures show cellulitis due to psuedomonas ) Lymphatic: no adenopathy Laboratory Results Last Resulted 08/31/17 07:41 Red Blood Count 3.73, Mean Corpuscular Volume 90.6, Mean Corpuscular Hemoglobin 30.6, Mean Corpuscular Hemoglobin Concent 33.7, Mean Platelet Volume 9.1, Neutrophils (%) (Auto) 73.1, Lymphocytes (%) (Auto) 16.2, Monocytes (%) (Auto) 9.3, Eosinophils (%) (Auto) 0.9, Basophils (%) (Auto) 0.2, Neutrophils # (Auto) 6.75, Lymphocytes # (Auto) 1.50, Monocytes # (Auto) 0.86, Eosinophils # (Auto) 0.08, Basophils # (Auto) 0.02 Last Resulted 08/31/17 07:41 Date/Time Source Procedure Growth Status 08/31/17 09:25 Blood Blood Culture Pending Received 08/31/17 15:20 Skin Toe DELFINA Preparation - Final NO YEAST OR HYPHAE SEEN Resulted 08/31/17 15:20 Skin Toe Fungal Culture Pending Resulted 08/31/17 14:30 Skin Hip , Right Gram Stain - Final Resulted 08/31/17 14:30 Wound Culture - Preliminary Probable Pseudomonas Species Resulted Assessment and Plan 76y/oF with reported hx of schizophrenia, and tremors presents with L hip pain s /p fall 4 days ago with subsequent immobility. Admitted for rhabdomyolysis based on elevated CK of 1422 with normal Cr of 0.75 and fasting ketoacidosis given patient did not have anything to eat or drink until discovered today. Hip pain s/p Fall with head trauma likely from contusion vs. hematoma with no fractures per imaging - CT head - no acute abnormality - Pelvis XR - mild osteoarthritis - CT pelvis/hip - No fracture; R buttocks subQ infiltration and fluid concerning for edema/small contusion - C-spine CT - no fracture - Femur XR - neg - Pain: tramadol 25mg Q4H PRN and ibuprofen 600mg QID - wound care consulted - PT/OT and SW consult - pt lives alone Cellulitis, Right Hip and Buttocks -Preliminary Cultures show pseudomonas -Started on Zosyn 3.375 g q6h -F/U cultures for confirmation and sensitivities Electrolyte Abnormalities - K+ was 3.0 gave 60 meq of K+ IV - PO4 was 1.9 gave 21 mmol of KPO4 - F/U albumin - Transitioned of D5W to LR to ppx against refeeding syndrome -Added Thiamine 100 mg BID per nutrition Elevation Of CK - Likely 2/2 to poor nutrition/being down for 4 days and skin infection - CK trending down 1422 -> 934 - Cr of 0.75 with mildly - BUN of 25 trending down 19 - NS with LR at 150mls/hr would continue as tolerated, dc tomorrow pending labs - Repeat CK and BMP/electrolytes tomorrow AM Fasting Ketoacidosis - UA positive for 4+ ketones - Bicarb normalizing 20 ->23 with AG of 7.0 - Started on IVF NS with D% at 150mls/hr - Repeat BMP tomorrow AM Elevated WBC and Plts - likely 2/2 to dehydration as levels have normalized - Plt elevated to 459 -> 328 - WBC 14.4 -> 9.24 - CXR neg - UA likely contaminated - Monitor CBC - F/U wound culture New onset wet cough - F/U Sputum Culture - Started on empire cefazolin 1g q8h Incidental finding of lung nodule - 6mm nodule L lung apex: outpt follow up in 6-12 months per guidelines Fungal foot infection - Noted on exam - Consider oral antifungal treatment prior to discharge once improving clinically - F/U toe culture Schizophrenia - Continue risperidone - Concerned rigidity and tremor are 2/2 - Consulted psych for medication management "-(1) Schizophrenia - Due for Risperdal Consta next . Son's can bring in for administration if still inpatient - No active symptoms of her illness in years per son's (2) Tardive dyskinesia - Started on Ingrezza for TD August 10 - Can have side effects of loss of balance and so recommend stopping this to see if imbalance/falls improve." Tremors - D/C benztropine per psych HLD - Continue Simvastatin Insomnia - Continue Temazepam and Doxepin GERD/chronic constipation - Continue Prilosec and Colace Allergic rhinitis - continue zyrtec Functional Status -Awaiting PT/OT evaluation DVT prop: Heparin SQ Code: Discuss when pt feeling better Dispo: SW consult -> D/c to rehab facility\\\\ Resident Physician Supervision Note: I interviewed and examined the patient. Discussed with Dr. Verdugo and agree with findings and plan as documented in the note. Any exceptions or clarifications are listed here: None Documented By: Luciano Torres no new issues, resting peacefully vitals noted nad breathing unlabored no pallor or icterus. fall/weakness - after input from psych and extensive d/w sons last night, sounds like pt was getting weaker for months - tremors were really bothersome and were better when laying down - so she spent more time laying down - then got weaker, then started on ingrezza, then fell. ?off balance from ingrezza as a "straw that broke the camel's back" of progressive deconditioning vs just all deconditioning and ingrezza played little to no role? -PT/OT -SNF/rehab -once stronger consider cautious restart of ingrezza in supervised setting ( would be quite hesitant to do so once she's back home) L hip pain - no fx/ appearing muscular. PT, OT, consider OMT R hip ulceration - local care, w mild surrounding cellulitis, abx - may need to adjust depending on sensitivities otherwise as above Resident Tracking Resident Involvement: Resident Care Provided Care Provided: Adult Hospital Medicine
[2017-09-01] MEDS: IBUPROFEN 600 MG TAB PO SCH ×4 (08:00→19:49)
[2017-09-01] MEDS: PANTOprazole SOD 40 MG TAB PO SCH (08:11)
[2017-09-01] MEDS: DOCUSATE SODIUM 100 MG CAP PO SCH ×3 (08:12→19:49)
[2017-09-01] MEDS: BENZTROPINE MESYLATE 1 MG TAB PO SCH (08:12)
[2017-09-01] MEDS: HEPARIN SOD 5000 UNIT/0.5 ML CARP SQ SCH ×2 (08:19→19:45)
[2017-09-01] MEDS ORDERED: PIPERACILL/TAZOBAC CONSULT ACTIVE PRN (12:45)
[2017-09-01 13:29] LABS: HEMATOCRIT 34.3 % (37-47); HEMOGLOBIN 11.4 g/dL (12.0-16.0); MEAN CELL VOLUME 91.2 fL (80-100); MEAN CORPUSCULAR HEMOGLOBIN 30.3 pg (25-34); MEAN CORPUSCULAR HGB CONC 33.2 g/dl (32-36); PLATELET COUNT 273 K/uL (130-400); RED CELL DISTRIBUTION WIDTH CV 14.1 % (11.5-14.5); RED CELL DISTRIBUTION WIDTH SD 47.4 fL (36.4-46.3); WHITE BLOOD COUNT 8.27 K/uL (4.8-10.8)
[2017-09-01] MEDS ORDERED: PIPERACILL/TAZOBAC IV 3.375 GM in D5W 100 ML IV ONE (13:30)
[2017-09-01 14:01] LABS: ALBUMIN 2.3 gm/dl (3.4-5.0); CALCIUM 8.3 mg/dl (8.5-10.1); CREATININE 0.56 mg/dl (0.60-1.20); POTASSIUM 3.6 mmol/L (3.5-5.1); TOTAL PROTEIN 5.7 gm/dl (6.4-8.2)
[2017-09-01 15:25] VITALS: BP 135/72; PULSE 75; TEMP 36.9; O2SAT 97
[2017-09-01] MEDS ORDERED: PIPERACILL/TAZOBAC IV 3.375 GM in DEXTROSE 5% 100ML 100 ML IV SCH (18:00)
[2017-09-01] MEDS: PIPERACILL/TAZOBAC IV 3.375 GM in D5W 100ML IV SCH (19:45)
[2017-09-01] MEDS: CETIRIZINE HCL 10 MG TAB PO SCH (19:49)
[2017-09-01] MEDS: SILENOR 3 MG PO SCH (19:50)
[2017-09-01] MEDS: TEMAZEPAM 15 MG CAP PO SCH (20:10)
[2017-09-01] MEDS: SIMVASTATIN 20 MG TAB PO SCH (21:16)
[2017-09-02 00:03] VITALS: BP 117/63; PULSE 73; TEMP 37.2; O2SAT 98
[2017-09-02] MEDS: PIPERACILL/TAZOBAC IV 3.375 GM in D5W 100ML IV SCH ×3 (04:22→20:02)
[2017-09-02] MEDS: THIAMINE HCL 100 MG IV SCH ×3 (04:22→18:34)
[2017-09-02] MEDS: [UNRECOGNIZED DRUG - OTHER] IV SCH ×3 (04:22→18:34)
[2017-09-02 06:41] VITALS: BP 139/78; PULSE 66; TEMP 36.5; O2SAT 96
[2017-09-02 07:30] LABS: CALCIUM 7.8 mg/dl (8.5-10.1); CREATININE 0.5 mg/dl (0.60-1.20); POTASSIUM 3.6 mmol/L (3.5-5.1); TOTAL PROTEIN 4.9 gm/dl (6.4-8.2)
[2017-09-02 07:45] LABS: HEMATOCRIT 32.3 % (37-47); HEMOGLOBIN 10.5 g/dL (12.0-16.0); MEAN CORPUSCULAR HEMOGLOBIN 29.6 pg (25-34); MEAN CORPUSCULAR HGB CONC 32.5 g/dl (32-36); MEAN PLATELET VOLUME 9.4 fL (7.4-10.4); PLATELET COUNT 293 K/uL (130-400); RED CELL DISTRIBUTION WIDTH CV 13.9 % (11.5-14.5); RED CELL DISTRIBUTION WIDTH SD 46.8 fL (36.4-46.3); WHITE BLOOD COUNT 6.47 K/uL (4.8-10.8)
--- NOTE | 2017-09-02 07:47 | Family Medicine Progress Note ---
Progress Note Date of Service Sep 02, 2017. Subjective Pt evaluation today including: conversation w/ patient, physical exam, chart review, lab review Pain: 0/10 PO Intake: Tolerating Voiding: torres catheter in place Patient was relaxing drinking a cocacola during the examination today. Patient is significantly improved form yesterday. Patient reports feeling better, more verbal and seems stronger. Patient has a folly in urine production is adequate, no bm, slept well, tolerating diet. Additional Comments: Constitutional: No fever, No chills, No sweats ENT: No hearing loss Respiratory: No cough, No sputum, No wheezing, No shortness of breath Cardiovascular: No chest pain, No edema Abdomen: No pain, No nausea, No vomiting, No diarrhea, No constipation Musculoskeletal: No joint pain Female : No dysuria Heme: No abnormal bleeding/bruising, No clotting problems Endo: No fatigue Skin: Rash, Pain, No itch, All Other Systems: Reviewed and Negative Medications Current Inpatient Medications Medications (Trade) Dose Ordered Sig/Moises Route Start Time Stop Time Status Last Admin Dose Admin Acetaminophen (Tylenol Tab) 650 mg Q4H PRN PO 08/30/17 16:00 09/29/17 15:59 Al Hydrox/Mg Hydrox/Simethicone (Maalox Max Susp) 15 ml Q4H PRN PO 08/30/17 16:00 09/29/17 15:59 Magnesium Hydroxide (Milk Of Magnesia Susp) 30 ml Q6H PRN PO 08/30/17 16:00 09/29/17 15:59 Polyethylene (Miralax Powder Packet) 17 gm DAILY PRN PO 08/30/17 16:00 09/29/17 15:59 Ondansetron HCl (Zofran Inj) 4 mg Q6H PRN IV 08/30/17 16:00 09/29/17 15:59 Heparin Sodium (Porcine) (Heparin Sq 5000 Unit/0.5ml) 5,000 unit Q12H SQ 08/30/17 21:00 09/29/17 15:59 Cetirizine HCl (zyrTEC TAB) 10 mg HS PO 08/30/17 21:00 09/29/17 20:59 09/01/17 19:49 10 MG Docusate Sodium (coLACE CAP) 100 mg TID PO 08/30/17 20:00 09/29/17 20:59 09/01/17 19:49 100 MG Simvastatin (Zocor Tab) 20 mg HS PO 08/30/17 21:00 09/29/17 20:59 09/01/17 21:16 20 MG Temazepam (Restoril Cap) 15 mg HS PO 08/30/17 21:00 09/29/17 20:59 09/01/17 20:10 15 MG Pantoprazole Sodium (Protonix Tab) 40 mg QAM PO 08/31/17 08:00 09/30/17 08:59 09/01/17 08:11 40 MG Ibuprofen (Motrin Tab) 600 mg QID PO 08/30/17 17:00 09/29/17 16:59 09/01/17 19:49 600 MG Tramadol HCl (Ultram Tab) 25 mg Q4H PRN PO 08/30/17 16:30 09/29/17 16:29 08/30/17 17:35 25 MG Thiamine HCl 100 mg/Lactated Ringer's 1,001 ml @ 150 mls/hr BY DURATION IV 08/31/17 16:30 09/30/17 16:29 09/01/17 22:35 150 MLS/HR Lactated Ringer's 1,000 ml @ 150 mls/hr BY DURATION IV 08/31/17 16:30 09/30/17 16:29 09/02/17 04:22 150 MLS/HR Miscellaneous Information (Consult) 1 ea UD PRN N/A 09/01/17 12:45 10/01/17 12:44 Piperacillin Sod/ Tazobactam Sod 3.375 gm/Dextrose 115 ml @ 28.75 mls/ hr Q8H IV 09/01/17 20:00 09/11/17 19:59 09/02/17 04:22 28.75 MLS/HR Non-Formulary Medication 2 ea HS PO 09/01/17 22:00 10/01/17 21:59 09/01/17 19:50 2 EA Risperidone (Risperdal Consta) 50 mg Q14D IM 09/07/17 09:00 10/07/17 08:59 Objective Vital Signs Date Time Temp Pulse Resp B/P (MAP) Pulse Ox O2 Delivery O2 Flow Rate FiO2 09/02/17 06:41 36.5 66 16 139/78 (98) 96 Room Air 09/02/17 00:03 37.2 73 18 117/63 (81) 98 Room Air 09/02/17 00:00 Room Air 09/01/17 16:00 Room Air 09/01/17 15:25 36.9 75 20 135/72 (93) 97 Room Air Physical Exam Notes: General Appearance: WD/WN, no apparent distress, + thin Eyes: normal inspection, EOMI, sclerae normal ENT: hearing grossly normal Neck: supple, no adenopathy, thyroid normal, trachea midline Respiratory/Chest: chest non-tender, lungs clear, normal breath sounds, no respiratory distress, no accessory muscle use Cardiovascular: regular rate, rhythm, no edema, no JVD Abdomen: normal bowel sounds, non tender, soft, no organomegaly, no pulsatile mass Extremities: non-tender, normal inspection, no pedal edema, no calf tenderness , normal capillary refill, pelvis stable Neurologic/Psychiatric: alert, normal mood/affect, oriented x 3, mood is improving as is affect negative syx receding. Skin: normal color, warm/dry, + rash (Pt has a rash on her back and right hip. Cultures show cellulitis due to psuedomonas, rash is improving ) Lymphatic: no adenopathy Laboratory Results Last Resulted 09/02/17 06:20 Last Resulted 09/02/17 06:20 Past 24 Hours Test 09/01/17 13:08 09/02/17 06:20 Range/Units Total Creatine Kinase 519 H 284 H 26-192 U/L Date/Time Source Procedure Growth Status 08/31/17 09:25 Blood Blood Culture Pending Received 08/31/17 15:20 Skin Toe DELFINA Preparation - Final NO YEAST OR HYPHAE SEEN Resulted 08/31/17 15:20 Skin Toe Fungal Culture Pending Resulted 08/31/17 14:30 Skin Hip , Right Gram Stain - Final Resulted 08/31/17 14:30 Wound Culture - Preliminary Pseudomonas Aeruginosa Resulted Assessment and Plan 76y/oF with reported hx of schizophrenia, and tremors presents with L hip pain s /p fall 4 days ago with subsequent immobility. Admitted for rhabdomyolysis based on elevated CK of 1422 with normal Cr of 0.75 and fasting ketoacidosis given patient did not have anything to eat or drink until discovered today. Hip pain s/p Fall with head trauma likely from contusion vs. hematoma with no fractures per imaging - Resolving - CT head - no acute abnormality - Pelvis XR - mild osteoarthritis - CT pelvis/hip - No fracture; R buttocks subQ infiltration and fluid concerning for edema/small contusion - C-spine CT - no fracture - Femur XR - neg - Pain: tramadol 25mg Q4H PRN and ibuprofen 600mg QID - wound care consulted - PT/OT and SW consult - pt lives alone Cellulitis, Right Hip and Buttocks -Preliminary Cultures show pseudomonas -Started on Zosyn 3.375 g q6h -Cultures show staph and pseudo -pseudo pansensitive -awaiting staph sensitivities -Cellulitis has improved significantly Electrolyte Abnormalities -Resolving - K+ continue to trend - PO4 continue to trend - Albumin low 2/2 nutrition will contiue to trend, if still low will replete tomorrow - Transitioned of D5W to LR to ppx against refeeding syndrome -Added Thiamine 100 mg BID per nutrition Elevation Of CK - Likely 2/2 to poor nutrition/being down for 4 days and skin infection - CK trending down 1422 -> 934 -> 284 - Cr of 0.5 - BUN of 25 -> 19 -> 7 - LR at 150mls/hr would continue as tolerated, dc tomorrow pending labs - Repeat CK and BMP/electrolytes tomorrow AM Fasting Ketoacidosis - UA positive for 4+ ketones - Bicarb normalizing 20 ->23 with AG of 7.0 - Started on IVF NS with D% at 150mls/hr - Repeat BMP tomorrow AM Elevated WBC and Plts - likely 2/2 to dehydration as levels have normalized with a contribution of cellulitis - Plt elevated to 459 -> 328 ->293 - WBC 14.4 -> 9.24 -> - CXR neg - UA likely contaminated - Monitor CBC - wound culture see above New onset wet cough - Resolved Incidental finding of lung nodule - 6mm nodule L lung apex: outpt follow up in 6-12 months per guidelines Fungal foot infection - Noted on exam - Consider oral antifungal treatment prior to discharge once improving clinically - F/U toe culture Schizophrenia - Continue risperidone - Concerned rigidity and tremor are 2/2 - Consulted psych for medication management "-(1) Schizophrenia - Due for Risperdal Consta next . Son's can bring in for administration if still inpatient - No active symptoms of her illness in years per son's (2) Tardive dyskinesia - Started on Ingrezza for TD August 10 - Can have side effects of loss of balance and so recommend stopping this to see if imbalance/falls improve." - Appreciate psych recs Tremors - D/C benztropine per psych HLD - Continue Simvastatin Insomnia - Continue Temazepam and Doxepin GERD/chronic constipation - Continue Prilosec and Colace Allergic rhinitis - continue zyrtec Functional Status -Awaiting PT/OT evaluation DVT prop: Heparin SQ Code: Discuss when pt feeling better Dispo: SW consult -> D/c to rehab facility Resident Physician Supervision Note: I interviewed and examined the patient. Discussed with Dr. Verdugo and agree with findings and plan as documented in the note. Any exceptions or clarifications are listed here: None Documented By: Luciano Torres no new issues, no new problems vitals noted nad breathing unlabored no pallor or icterus. fall/weakness - after input from psych and extensive d/w sons last night, sounds like pt was getting weaker for months - tremors were really bothersome and were better when laying down - so she spent more time laying down - then got weaker, then started on ingrezza, then fell. ?off balance from ingrezza as a "straw that broke the camel's back" of progressive deconditioning vs just all deconditioning and ingrezza played little to no role? -PT/OT -SNF/rehab once approved -once stronger consider cautious restart of ingrezza in supervised setting ( would be quite hesitant to do so once she's back home) L hip pain - no fx/ appearing muscular. PT, OT, consider OMT if doesn't improve. R hip ulceration - local care, w mild surrounding cellulitis, abx - had to adjust for cultures otherwise as above Resident Tracking Resident Involvement: Resident Care Provided Care Provided: Adult Hospital Medicine
[2017-09-02] MEDS: IBUPROFEN 600 MG TAB PO SCH ×4 (08:12→20:17)
[2017-09-02] MEDS: DOCUSATE SODIUM 100 MG CAP PO SCH ×3 (08:12→20:02)
[2017-09-02] MEDS: PANTOprazole SOD 40 MG TAB PO SCH (08:12)
[2017-09-02] MEDS: HEPARIN SOD 5000 UNIT/0.5 ML CARP SQ SCH ×2 (09:39→20:06)
[2017-09-02 15:35] VITALS: BP 131/70; PULSE 67; TEMP 36.7; O2SAT 97
[2017-09-02] MEDS: TEMAZEPAM 15 MG CAP PO SCH (20:02)
[2017-09-02] MEDS: SIMVASTATIN 20 MG TAB PO SCH (20:03)
[2017-09-02] MEDS: SILENOR 3 MG PO SCH (20:06)
[2017-09-02] MEDS: CETIRIZINE HCL 10 MG TAB PO SCH (20:17)
[2017-09-02 23:04] VITALS: BP 129/70; PULSE 75; TEMP 36.9; O2SAT 97
[2017-09-03] MEDS: [UNRECOGNIZED DRUG - OTHER] IV SCH ×2 (01:21→06:35)
[2017-09-03] MEDS: THIAMINE HCL 100 MG IV SCH ×2 (01:21→06:35)
[2017-09-03] MEDS: PIPERACILL/TAZOBAC IV 3.375 GM in D5W 100ML IV SCH ×2 (03:46→11:42)
[2017-09-03 07:16] VITALS: BP 139/67; PULSE 65; TEMP 36.8; O2SAT 96
[2017-09-03 08:01] LABS: HEMATOCRIT 32.2 % (37-47); HEMOGLOBIN 10.9 g/dL (12.0-16.0); MEAN CORPUSCULAR HEMOGLOBIN 30.8 pg (25-34); MEAN CORPUSCULAR HGB CONC 33.9 g/dl (32-36); MEAN PLATELET VOLUME 9.3 fL (7.4-10.4); PLATELET COUNT 315 K/uL (130-400); RED CELL DISTRIBUTION WIDTH CV 13.7 % (11.5-14.5); RED CELL DISTRIBUTION WIDTH SD 46.1 fL (36.4-46.3); WHITE BLOOD COUNT 6.31 K/uL (4.8-10.8)
--- NOTE | 2017-09-03 08:20 | Family Medicine Progress Note ---
Progress Note Date of Service Sep 03, 2017. Medications Current Inpatient Medications Medications (Trade) Dose Ordered Sig/Moises Route Start Time Stop Time Status Last Admin Dose Admin Acetaminophen (Tylenol Tab) 650 mg Q4H PRN PO 08/30/17 16:00 09/29/17 15:59 Al Hydrox/Mg Hydrox/Simethicone (Maalox Max Susp) 15 ml Q4H PRN PO 08/30/17 16:00 09/29/17 15:59 Magnesium Hydroxide (Milk Of Magnesia Susp) 30 ml Q6H PRN PO 08/30/17 16:00 09/29/17 15:59 Polyethylene (Miralax Powder Packet) 17 gm DAILY PRN PO 08/30/17 16:00 09/29/17 15:59 09/02/17 14:47 17 GM Ondansetron HCl (Zofran Inj) 4 mg Q6H PRN IV 08/30/17 16:00 09/29/17 15:59 Heparin Sodium (Porcine) (Heparin Sq 5000 Unit/0.5ml) 5,000 unit Q12H SQ 08/30/17 21:00 09/29/17 15:59 09/02/17 20:06 5,000 UNIT Cetirizine HCl (zyrTEC TAB) 10 mg HS PO 08/30/17 21:00 09/29/17 20:59 09/02/17 20:17 10 MG Docusate Sodium (coLACE CAP) 100 mg TID PO 08/30/17 20:00 09/29/17 20:59 09/02/17 20:02 100 MG Simvastatin (Zocor Tab) 20 mg HS PO 08/30/17 21:00 09/29/17 20:59 09/02/17 20:03 20 MG Temazepam (Restoril Cap) 15 mg HS PO 08/30/17 21:00 09/29/17 20:59 09/02/17 20:02 15 MG Pantoprazole Sodium (Protonix Tab) 40 mg QAM PO 08/31/17 08:00 09/30/17 08:59 09/02/17 08:12 40 MG Ibuprofen (Motrin Tab) 600 mg QID PO 08/30/17 17:00 09/29/17 16:59 09/02/17 20:17 600 MG Tramadol HCl (Ultram Tab) 25 mg Q4H PRN PO 08/30/17 16:30 09/29/17 16:29 08/30/17 17:35 25 MG Thiamine HCl 100 mg/Lactated Ringer's 1,001 ml @ 150 mls/hr BY DURATION IV 08/31/17 16:30 09/30/17 16:29 09/03/17 01:21 150 MLS/HR Lactated Ringer's 1,000 ml @ 150 mls/hr BY DURATION IV 08/31/17 16:30 09/30/17 16:29 09/03/17 06:35 150 MLS/HR Miscellaneous Information (Consult) 1 ea UD PRN N/A 09/01/17 12:45 10/01/17 12:44 Piperacillin Sod/ Tazobactam Sod 3.375 gm/Dextrose 115 ml @ 28.75 mls/ hr Q8H IV 09/01/17 20:00 09/11/17 19:59 09/03/17 03:46 28.75 MLS/HR Non-Formulary Medication 2 ea HS PO 09/01/17 22:00 10/01/17 21:59 09/02/17 20:06 2 EA Risperidone (Risperdal Consta) 50 mg Q14D IM 09/07/17 09:00 10/07/17 08:59 Objective Vital Signs Date Time Temp Pulse Resp B/P (MAP) Pulse Ox O2 Delivery O2 Flow Rate FiO2 09/03/17 07:16 36.8 65 20 139/67 (91) 96 Room Air 09/03/17 00:01 Room Air 09/02/17 23:04 36.9 75 18 129/70 (89) 97 Room Air 09/02/17 16:00 Room Air 09/02/17 15:35 36.7 67 18 131/70 (90) 97 Room Air Laboratory Results Last Resulted 09/03/17 07:19 Date/Time Source Procedure Growth Status 08/31/17 09:25 Blood Blood Culture - Preliminary NO GROWTH TO DATE. Resulted 08/31/17 15:20 Skin Toe DELFINA Preparation - Final NO YEAST OR HYPHAE SEEN Resulted 08/31/17 15:20 Skin Toe Fungal Culture Pending Resulted 08/31/17 14:30 Skin Hip , Right Gram Stain - Final Resulted 08/31/17 14:30 Wound Culture - Preliminary Pseudomonas Aeruginosa Staphylococcus Aureus Resulted Assessment and Plan 76y/oF with reported hx of schizophrenia, and tremors presents with L hip pain s /p fall 4 days ago with subsequent immobility. Admitted for rhabdomyolysis based on elevated CK of 1422 with normal Cr of 0.75 and fasting ketoacidosis given patient did not have anything to eat or drink until discovered today. Hip pain s/p Fall with head trauma likely from contusion vs. hematoma with no fractures per imaging - Resolving - CT head - no acute abnormality - Pelvis XR - mild osteoarthritis - CT pelvis/hip - No fracture; R buttocks subQ infiltration and fluid concerning for edema/small contusion - C-spine CT - no fracture - Femur XR - neg - Pain: tramadol 25mg Q4H PRN and ibuprofen 600mg QID - wound care consulted - PT/OT and SW consult - pt lives alone Cellulitis, Right Hip and Buttocks -Preliminary Cultures show pseudomonas -Started on Zosyn 3.375 g q6h -Cultures show staph and pseudo -pseudo pansensitive -awaiting staph sensitivities -Cellulitis has improved significantly Electrolyte Abnormalities -Resolving - K+ continue to trend - PO4 continue to trend - Albumin low 2/2 nutrition will contiue to trend, if still low will replete tomorrow - Transitioned of D5W to LR to ppx against refeeding syndrome -Added Thiamine 100 mg BID per nutrition Elevation Of CK - Likely 2/2 to poor nutrition/being down for 4 days and skin infection - CK trending down 1422 -> 934 -> 284 - Cr of 0.5 - BUN of 25 -> 19 -> 7 - LR at 150mls/hr would continue as tolerated, dc tomorrow pending labs - Repeat CK and BMP/electrolytes tomorrow AM Fasting Ketoacidosis - UA positive for 4+ ketones - Bicarb normalizing 20 ->23 with AG of 7.0 - Started on IVF NS with D% at 150mls/hr - Repeat BMP tomorrow AM Elevated WBC and Plts - likely 2/2 to dehydration as levels have normalized with a contribution of cellulitis - Plt elevated to 459 -> 328 ->293 - WBC 14.4 -> 9.24 -> - CXR neg - UA likely contaminated - Monitor CBC - wound culture see above New onset wet cough - Resolved Incidental finding of lung nodule - 6mm nodule L lung apex: outpt follow up in 6-12 months per guidelines Fungal foot infection - Noted on exam - Consider oral antifungal treatment prior to discharge once improving clinically - F/U toe culture Schizophrenia - Continue risperidone - Concerned rigidity and tremor are 2/2 - Consulted psych for medication management "-(1) Schizophrenia - Due for Risperdal Consta next . Son's can bring in for administration if still inpatient - No active symptoms of her illness in years per son's (2) Tardive dyskinesia - Started on Ingrezza for TD August 10 - Can have side effects of loss of balance and so recommend stopping this to see if imbalance/falls improve." - Appreciate psych recs Tremors - D/C benztropine per psych HLD - Continue Simvastatin Insomnia - Continue Temazepam and Doxepin GERD/chronic constipation - Continue Prilosec and Colace Allergic rhinitis - continue zyrtec Functional Status -Awaiting PT/OT evaluation DVT prop: Heparin SQ Code: Discuss when pt feeling better Dispo: SW consult -> D/c to rehab facility Resident Tracking Resident Involvement: Resident Care Provided Care Provided: Adult Hospital Medicine
[2017-09-03 08:41] LABS: CALCIUM 7.8 mg/dl (8.5-10.1); CREATININE 0.53 mg/dl (0.60-1.20); POTASSIUM 3.9 mmol/L (3.5-5.1)
[2017-09-03] MEDS: DOCUSATE SODIUM 100 MG CAP PO SCH ×2 (10:06→14:00)
[2017-09-03] MEDS: IBUPROFEN 600 MG TAB PO SCH ×2 (10:06→11:43)
[2017-09-03] MEDS: HEPARIN SOD 5000 UNIT/0.5 ML CARP SQ SCH (10:11)
[2017-09-03] MEDS: PANTOprazole SOD 40 MG TAB PO SCH (11:42)
[2017-09-03] MEDS ORDERED: CIPROFLOXACIN 500 MG TAB PO SCH (13:00)
--- NOTE | 2017-09-03 13:09 | Discharge Instructions ---
Discharge Instructions Date of Service Sep 03, 2017. Admission Reason for Admission: Rhadomyolysis Discharge Discharge Diagnosis / Problem: Rhabdomyolysis, Mechanical fall Discharge Goals Goal(s): Decrease discomfort, Improve function, Increase independence, Improve disease control, Diagnostic testing, Therapeutic intervention Activity Recommendations Activity Level: Assistance Required Therapies: Physical Therapy, Occupational Therapy . Additional Information Patient informed of condition: Yes Advance Directives: No DNR: No Level of Care: Acute Rehab Communicable Disease: No Prognosis: Stable Instructions / Follow-Up Instructions / Follow-Up 76y/oF admitted for rhabdomyolysis 2/2 fall at home and subsequent low PO intake for 4 days prior to admission. PMHx of schizophrenia, and tremors. PT Summary * Pt. was a 76 year old female who was admitted to [facility] via the ED, 08/30/2017, with rhabdomyolysis, after having fallen at home and lay there X ~4 days. Hit head, denied LOC, unable to get up, found by [facility]. Presented with numerous abrasions, mentally slow to respond, poor skin condition, ROM limitations, all 4 extremities, poor overall strength, bed mobility/transfer deficits, unable to ambulate at time of evaluation. Good rehab potential; however, does not appear safe to return, home alone. Recommend inpatient rehab when medically cleared by [facility], possible placement if patient does not progress in gross motor functioning. Occupational Therapy Goal Summary * Pt presented with poor self hyigene, decreased strength, endurance, BUE AROM, static/dynamic sitting/standing balance, and safety awareness hindering pt's safety and independence with ADL's/functional transfers. Recommend pt continue skilled OT services while inpatient [facility] and upon discharge to maximize pt's overall independence. Pt is NOT safe to return home alone at this time. Hip pain s/p Fall with head trauma likely from contusion vs. hematoma with no fractures per imaging RECOMMENDATION: CONTINUE PT/OT - CT head, pelvis XR, C-spine CT, Femur XR, -- ALL NEGATIVE and no acute abnormality - Pain: tramadol 25mg Q4H PRN and ibuprofen 600mg QID - wound care consulted - PT/OT and SW consult - pt lives alone Cellulitis, Right Hip and Buttocks RECOMMENDATION: CONTINUE CIPROFLOXACIN 500 MG BID X 7 MORE DAYS, AND KEFLEX 500 MG PO QID X 7 MORE DAYS, COMPLETE COURSE. -Cellulitis has improved significantly Electrolyte Abnormalities - RESOLVED - RECOMMENDATION: CONTINUE Thiamine 100 mg BID Elevation Of CK - RESOLVED Incidental finding of lung nodule - 6mm nodule L lung apex RECOMMEND: outpt follow up in 6-12 months per guidelines Schizophrenia - Continue risperidone (Risperdal Consta 50mg [id number] IM -- NEXT ADMINISTRATION DUE 09/07/2017. Son can bring in for administration if still inpatient Tardive dyskinesia - HELD Ingrezza DUE TO ADVERSE EFFECTS. RECOMMEND DISCONTINUE PER PSYCH RECS. HLD - Continue Simvastatin Insomnia - Continue Temazepam and Doxepin GERD/chronic constipation - Continue Prilosec and Colace Allergic rhinitis - continue zyrtec DVT prop: Heparin 5000 UNITS SQ Q12H GIVEN HERE Code: RECOMMEND TO Discuss WITH PATIENT when pt feeling better Current Hospital Diet Patient's current hospital diet: Regular Diet Discharge Diet Recommended Diet: Regular Diet Pending Studies Studies pending at discharge: no Medical Emergencies . Who to Call and When: Medical Emergencies: If at any time you feel your situation is an emergency, please call 911 immediately. . Non-Emergent Contact Non-Emergency issues call your: Primary Care Provider Call Non-Emergent contact if: you have any medication questions . . "Provider Documentation" section prepared by Marilu Nguyen. . Core Measure Problem Core Measures: None
[2017-09-03] MEDS ORDERED: [UNRECOGNIZED DRUG - CODE] IM (13:14)
[2017-09-03] MEDS ORDERED: THIA100T46 PO (13:14)
[2017-09-03] MEDS ORDERED: KFL500 PO (13:14)
[2017-09-03] MEDS ORDERED: CIPR250T3 PO (13:14)
[2017-09-03] MEDS ORDERED: CIPR1TAB11 PO (13:31)
[2017-09-03 13:57] VITALS: BP 139/67; PULSE 65; TEMP 36.8; O2SAT 96
[2017-09-03] MEDS ORDERED: TEMA15CA4 PO (14:14)
--- NOTE | 2017-09-03 16:17 | Discharge Summary ---
Discharge Summary Date of Service Sep 03, 2017. Discharge Summary Admission Date: Aug 30, 2017 at 16:14 Discharge Date: Sep 03, 2017 Discharge Disposition: residential facility Principal Diagnosis: fall, weakness Problems/Secondary Diagnoses: some of weakness may be related to tremor for schizophrenia meds, some of imbalance possibly side effect of ingrezza which was utilized to manage tremors from schizophrenia meds Procedures: imaging: no fractures identified (head, pelvis, Cspine CT) CXR negative Last Resulted CBC 09/03/17 07:19 Last Resulted BMP 09/03/17 07:19 Consultations: psych Medication Reconciliation New Medications: Ciprofloxacin Tab (Cipro) 250 Mg Tab 2 TAB PO BID for 7 Days, #28 TAB Thiamine Hcl (Vitamin B1) 100 Mg Tab 1 TAB PO DAILY for 30 Days, #30 TABS Cephalexin Monohydrate (Cephalexin) 500 Mg Cap 500 MG PO QID for 7 Days, #28 CAP Continued Medications: Cetirizine (Zyrtec) 10 Mg Tab 10 MG PO HS Docusate Sodium (Colace) 100 Mg Cap 100 MG PO TID Doxepin Hcl (Sleep) (Silenor) 3 Mg Tab 6 MG PO HS TWO 3 MG TABLETS AT BEDTIME Omeprazole (Prilosec) 20 Mg Capcr 20 MG PO DAILY Risperidone (Risperdal Consta) 50 Mg Inj 50 MG IM Q2WKS for 1 Day, #50 MG (This prescription has been renewed) Simvastatin (Zocor) 20 Mg Tab 20 MG PO HS Temazepam (Restoril) 15 Mg Cap 15 MG PO HS, #30 TAB (This prescription has been renewed) Discontinued Medications: Benztropine Mesylate (Benztropine Mesylate) 1 Mg Tab 1.5 MG PO BID 1 1/2 TABLET TWICE DAILY Valbenazine Tosylate (Ingrezza) 40 Mg Cap 40 MG DAILY Discharge Exam Physical Exam: General Appearance: no apparent distress Eyes: EOMI ENT: hearing grossly normal Neck: trachea midline Respiratory/Chest: no respiratory distress, no accessory muscle use Neurologic/Psychiatric: store receiver II-XII nml as tested, alert, + pertinent finding (flat but pleasant and interactive) Skin: normal color, warm/dry Hospital Course 76y/oF with reported hx of schizophrenia, and tremors presents with L hip pain s /p fall 4 days ago with subsequent immobility. Admitted for rhabdomyolysis based on elevated CK of 1422 with normal Cr of 0.75 and fasting ketoacidosis given patient did not have anything to eat or drink until discovered today. Hip pain s/p Fall with head trauma likely from contusion vs. hematoma with no fractures per imaging - Resolving - CT head - no acute abnormality - Pelvis XR - mild osteoarthritis - CT pelvis/hip - No fracture; R buttocks subQ infiltration and fluid concerning for edema/small contusion - C-spine CT - no fracture - Femur XR - neg - wound care consulted - PT/OT and SW consult - pt lives alone - appears that fall was a vicious cycle - sons note that with her schizophrenia meds she has significant tremor - tremor is better laying down, because of this she was laying down a lot more - likely led to deconditioning. later, psych added ingrezza to try to alleviate tremors, but this may also have led to imbalance as odd but plausible side effect -at this point - mainly needs PT/OT strengthening, nutritional support. over time, consider supervised trial of ingrezza (if she's stronger maybe it won 't lead to imbalance, but would not do so without still being in supervised setting, in case it's simply a side effect that would recur) Cellulitis, Right Hip and Buttocks -Preliminary Cultures show pseudomonas -Started on Zosyn 3.375 g q6h --> transition to cipro at discharge -local wound care -Cultures show staph and pseudo -pseudo pansensitive -awaiting staph sensitivities -Cellulitis has improved significantly Electrolyte Abnormalities -Resolving - K+ continue to trend - PO4 continue to trend - Albumin low 2/2 nutrition will contiue to trend, if still low will replete tomorrow - Transitioned of D5W to LR to ppx against refeeding syndrome -Added Thiamine 100 mg BID per nutrition -now doing well on PO - stable for discharge, follow BMP periodically Elevation Of CK - Likely 2/2 to poor nutrition/being down for 4 days and skin infection - CK trending down 1422 -> 934 -> 284 - Cr of 0.5 - BUN of 25 -> 19 -> 7 - essentially a resolved issue Fasting Ketoacidosis - likely a starvation ketosis Elevated WBC and Plts - likely 2/2 to dehydration as levels have normalized with a contribution of cellulitis - no s/s infection other than superficial at hip - follow periodic CBC New onset wet cough - Resolved Incidental finding of lung nodule - 6mm nodule L lung apex: outpt follow up in 6-12 months per guidelines Fungal foot infection - Noted on exam - Consider oral antifungal treatment prior to discharge once improving clinically - F/U toe culture - would ask for podiatry at SNF for nail care Schizophrenia - Continue risperidone - Concerned rigidity and tremor are 2/2 - Consulted psych for medication management "-(1) Schizophrenia - Due for Risperdal Consta next . Son's can bring in for administration if still inpatient - No active symptoms of her illness in years per son's (2) Tardive dyskinesia - Started on Ingrezza for TD August 10 - Can have side effects of loss of balance and so recommend stopping this to see if imbalance/falls improve." - Appreciate psych recs, would have ongoing psych input at SNF and as outpt Tremors - D/C benztropine per psych - see above otherwise HLD - Continue Simvastatin Insomnia - Continue Temazepam and Doxepin GERD/chronic constipation - Continue Prilosec and Colace Allergic rhinitis - continue zyrtec DVT prop: Heparin SQ utilized while here stable for transfer to SNF, otherwise as above Total Time Spent: Less than 30 minutes This includes examination of the patient, discharge planning, medication reconciliation, and communication with other providers. Discharge Instructions Please refer to the electronic Patient Visit Report (Discharge Instructions) for additional information. Additional Copies To [facility]; Benjamin Conklin
[2017-09-03] MEDS ORDERED: CEPHALEXIN MONOHYDRATE 500 MG CAP PO SCH (17:00)
[2017-09-07] MEDS ORDERED: RISPERIDONE MICROSPHERES 50 MG IM SCH (09:00)
[2017-09-08] MEDS ORDERED: RISPERIDONE MICROSPHERES 50 MG IM SCH (06:00)
== END 2017-09-03 14:45 | DRG 558 ==
LOC: EDBD 11:45 → C.EDC 11:46 → C.MS4W 16:14 → ENRESERV 16:26
PROVIDERS: ADMIT Family Medicine; ATTEND Family Medicine
DX: M62.82 Rhabdomyolysis (principal); E87.2 Acidosis; L03.115 Cellulitis of right lower limb; L97.819 Non-pressure chronic ulcer of other part of right lower leg with unspecified severity; L03.317 Cellulitis of buttock; B96.5 Pseudomonas (aeruginosa) (mallei) (pseudomallei) as the cause of diseases classified elsewhere; B95.8 Unspecified staphylococcus as the cause of diseases classified elsewhere; E88.89 Other specified metabolic disorders; S70.12XA Contusion of left thigh, initial encounter; M25.552 Pain in left hip; S09.90XA Unspecified injury of head, initial encounter; W01.198A Fall on same level from slipping, tripping and stumbling with subsequent striking against other object, initial encounter; Y92.032 Bedroom in apartment as the place of occurrence of the external cause; E86.0 Dehydration; E87.6 Hypokalemia; E83.39 Other disorders of phosphorus metabolism; G24.01 Drug induced subacute dyskinesia; T43.595A Adverse effect of other antipsychotics and neuroleptics, initial encounter; F20.9 Schizophrenia, unspecified; R53.81 Other malaise; R05 Cough; R91.1 Solitary pulmonary nodule; B35.3 Tinea pedis; R25.1 Tremor, unspecified; E78.5 Hyperlipidemia, unspecified; G47.00 Insomnia, unspecified; K21.9 Gastro-esophageal reflux disease without esophagitis; K59.09 Other constipation; J30.9 Allergic rhinitis, unspecified; Z79.899 Other long term (current) drug therapy; Z88.1 Allergy status to other antibiotic agents; Z88.5 Allergy status to narcotic agent

== ENCOUNTER → 2017-09-15 | Outpatient (CLI) | payer OTHER ==
[~2017-09-15] MED LIST changes: -AMB10 PO; +CETI10TA84 PO; -CGN5 PO; -CLC100 PO; +DOCU-94 PO; +DOXE1TAB2 PO; +KFL500 PO; +TEMA15CA4 PO; +THIA100T46 PO; +[UNRECOGNIZED DRUG - CODE] IM
== END ==
LOC: C.LABUPNIT 07:50
PROVIDERS: ATTEND Nurse Practitioner Family
DX: L89.210 Pressure ulcer of right hip, unstageable (principal)

== ENCOUNTER → 2017-10-04 | Outpatient (CLI) | payer OTHER | END | disposition home or self-care (01) | LOC: C.LABUPNIT 11:48 | PROVIDERS: ATTEND Nurse Practitioner Family | DX: F33.8 Other recurrent depressive disorders (principal) ==